=== PATIENT | female | born 1945 | race Caucasian/White ===

== ENCOUNTER → 2016-07-29 | Outpatient (CLI) | payer OTHER ==
[~2016-07-29] MED LIST: CARB25TA12 PO; CELE100C PO; CHOL1CAP57 PO; LEVO200T6 PO; LEVO25TA5 PO; LSX40 PO; METF500T PO; MISCTAB78; OMEGCAP2 PO; TRAM-10 PO; [UNRECOGNIZED DRUG - CODE] TOP
[2016-07-29 13:17] LABS: THYROID STIMULATING HORMONE 3.96 uIu/ml (0.300-4.500)
== END ==
LOC: C.LABCC 11:45
PROVIDERS: ATTEND Internal Medicine
DX: E03.9 Hypothyroidism, unspecified (principal)

== ENCOUNTER → 2016-10-15 | Outpatient (CLI) | payer OTHER ==
[2016-10-15 09:19] LABS: ESTIMATED AVERAGE GLUCOSE 180 mg/dl; HA1C FLAG Normal (Normal)
== END ==
LOC: C.LABCC 08:16
PROVIDERS: ATTEND Internal Medicine
DX: E11.9 Type 2 diabetes mellitus without complications (principal)

== ENCOUNTER → 2016-10-31 | Outpatient (CLI) | payer OTHER ==
[2016-10-31 17:22] LABS: URINE APPEARANCE CLOUDY (CLEAR); URINE BILIRUBIN NEG (NEG); URINE COLOR DK YELLOW; URINE EPITHELIAL CELL AUTO 0-5 /lpf (0-5); URINE NITRITE NEG (NEG); URINE PH >= 9.0 (4.5-7.5); UROBILINOGEN NEG (NEG)
[2016-10-31 17:59] LABS: MANUAL MICROSCOPIC REQUIRED? NO; REVIEW REQ? NO
[2016-10-31 18:00] LABS: SULFASALICYLIC ACID POS (NEG)
== END ==
LOC: C.LABCC 09:30
PROVIDERS: ATTEND Internal Medicine
DX: R30.0 Dysuria (principal); R82.90 Unspecified abnormal findings in urine

== ENCOUNTER → 2016-12-07 | Outpatient (CLI) | payer OTHER ==
[2016-12-07 10:01] LABS: HEMATOCRIT 38.5 % (37-47); MEAN CELL VOLUME 97.7 fL (80-100); MEAN CORPUSCULAR HEMOGLOBIN 31.5 pg (25-34); MEAN CORPUSCULAR HGB CONC 32.2 g/dl (32-36); MEAN PLATELET VOLUME 9.3 fL (7.4-10.4); PLATELET COUNT 495 K/uL (130-400); RED BLOOD COUNT 3.94 M/uL (4.2-5.4); WHITE BLOOD COUNT 16.74 K/uL (4.8-10.8)
[2016-12-07 10:19] LABS: ALT/SGPT 24 U/L (12-78); AST/SGOT 13 U/L (15-37); BLOOD UREA NITROGEN 16 mg/dl (7-18); BUN/CREATININE RATIO 18.9 (10-20); CALCIUM 8.8 mg/dl (8.5-10.1); CARBON DIOXIDE 27 mmol/L (21-32); CHLORIDE 101 mmol/L (98-107); CREATININE 0.83 mg/dl (0.60-1.20); GLUCOSE 196 mg/dl (70-99); MAGNESIUM 2.1 mg/dl (1.8-2.4); POTASSIUM 4.4 mmol/L (3.5-5.1); SODIUM 135 mmol/L (136-145)
[2016-12-07 10:30] LABS: ALB/GLOB RATIO 0.6 (0.9-2); ALKALINE PHOSPHATASE 78 U/L (45-117)
[2016-12-07 11:10] LABS: BASO % 0.4 %; BASO ABS # 0.06 K/uL (0-0.2); COMPLETE YES; EOS % 1.7 %; IG% 7.2 %; LYMPH % 15.2 %; LYMPH ABS # 2.54 K/uL (1.2-3.4); NEUT % 68.5 %
== END | disposition home or self-care (01) ==
LOC: C.LABCC 09:28
PROVIDERS: ATTEND Internal Medicine
DX: E11.9 Type 2 diabetes mellitus without complications (principal); F03.90 Unspecified dementia, unspecified severity, without behavioral disturbance, psychotic disturbance, mood disturbance, and anxiety; R60.9 Edema, unspecified; M19.90 Unspecified osteoarthritis, unspecified site; Z51.81 Encounter for therapeutic drug level monitoring; Z79.899 Other long term (current) drug therapy

== ENCOUNTER → 2017-02-08 | Outpatient (CLI) | payer OTHER ==
[2017-02-08 09:55] LABS: ESTIMATED AVERAGE GLUCOSE 180 mg/dl; HA1C FLAG Normal (Normal)
== END ==
LOC: C.LABCC 08:14
PROVIDERS: ATTEND Internal Medicine
DX: E11.9 Type 2 diabetes mellitus without complications (principal)

== ENCOUNTER → 2017-02-15 | Outpatient (CLI) | payer OTHER ==
[2017-02-15 08:52] LABS: ESTIMATED AVERAGE GLUCOSE 186 mg/dl; HA1C FLAG Normal (Normal)
== END ==
LOC: C.LABCC 08:05
PROVIDERS: ATTEND Internal Medicine
DX: E11.9 Type 2 diabetes mellitus without complications (principal)

== ENCOUNTER → 2017-06-11 | Outpatient (CLI) | payer OTHER ==
[2017-06-11 10:00] LABS: ESTIMATED AVERAGE GLUCOSE 192 mg/dl; HA1C FLAG Normal (Normal)
== END ==
LOC: C.LABCC 09:02
PROVIDERS: ATTEND Internal Medicine
DX: E11.9 Type 2 diabetes mellitus without complications (principal)

== ENCOUNTER → 2017-08-09 | Outpatient (CLI) | payer OTHER ==
[2017-08-09 11:46] LABS: BASO % 0.2 %; BASO ABS # 0.02 K/uL (0-0.2); EOS ABS # 0.19 K/uL (0-0.5); HEMATOCRIT 41.8 % (37-47); HEMOGLOBIN 13.8 g/dL (12.0-16.0); IG# 0.07 K/uL (0.00-0.02); LYMPH ABS # 1.98 K/uL (1.2-3.4); MEAN CELL VOLUME 97.4 fL (80-100); MEAN CORPUSCULAR HEMOGLOBIN 32.2 pg (25-34); MEAN PLATELET VOLUME 11.2 fL (7.4-10.4); MONO % 8.3 %; MONO ABS # 0.78 K/uL (0.11-0.59); NEUT % 67.8 %; PLATELET COUNT 315 K/uL (130-400); RED CELL DISTRIBUTION WIDTH CV 13.3 % (11.5-14.5); WHITE BLOOD COUNT 9.44 K/uL (4.8-10.8)
[2017-08-09 11:54] LABS: BLOOD UREA NITROGEN 20 mg/dl (7-18); CALCIUM 9.1 mg/dl (8.5-10.1); CARBON DIOXIDE 24 mmol/L (21-32); CREATININE 0.83 mg/dl (0.60-1.20); GLUCOSE 175 mg/dl (70-99); POTASSIUM 4.3 mmol/L (3.5-5.1); SODIUM 137 mmol/L (136-145)
== END ==
LOC: C.LABCC 09:56
PROVIDERS: ATTEND Internal Medicine
DX: E55.9 Vitamin D deficiency, unspecified (principal); E11.9 Type 2 diabetes mellitus without complications; E05.90 Thyrotoxicosis, unspecified without thyrotoxic crisis or storm; K21.9 Gastro-esophageal reflux disease without esophagitis

== ENCOUNTER → 2017-11-01 | Outpatient (CLI) | payer OTHER ==
[2017-11-01 10:18] LABS: BLOOD UREA NITROGEN 18 mg/dl (7-18); CALCIUM 9.2 mg/dl (8.5-10.1); CARBON DIOXIDE 24 mmol/L (21-32); GLUCOSE 247 mg/dl (70-99); POTASSIUM 4.3 mmol/L (3.5-5.1); SODIUM 134 mmol/L (136-145)
== END ==
LOC: C.LABCC 09:27
PROVIDERS: ATTEND Internal Medicine
DX: R60.9 Edema, unspecified (principal)

== ENCOUNTER → 2017-11-16 | Outpatient (CLI) | payer OTHER ==
[2017-11-16 08:54] LABS: BLOOD UREA NITROGEN 19 mg/dl (7-18); CARBON DIOXIDE 26 mmol/L (21-32); CREATININE 0.89 mg/dl (0.60-1.20); GLUCOSE 181 mg/dl (70-99); POTASSIUM 4.4 mmol/L (3.5-5.1); SODIUM 137 mmol/L (136-145)
[2017-11-16 09:07] LABS: HEMOGLOBIN A1C 8.6 % (4.5-5.6)
== END | disposition home or self-care (01) ==
LOC: C.LABCC 07:50
PROVIDERS: ATTEND Internal Medicine
DX: E11.9 Type 2 diabetes mellitus without complications (principal); E55.9 Vitamin D deficiency, unspecified

== ENCOUNTER → 2018-03-14 | Outpatient (CLI) | payer OTHER ==
[2018-03-14 09:01] LABS: HEMOGLOBIN A1C 8.4 % (4.5-5.6)
== END ==
LOC: C.LABCC 08:18
PROVIDERS: ATTEND Internal Medicine
DX: E03.9 Hypothyroidism, unspecified (principal); E55.9 Vitamin D deficiency, unspecified; E11.9 Type 2 diabetes mellitus without complications

== ENCOUNTER 2020-11-10 18:42 | Inpatient (IN) ==
[2020-11-10] MEDS ORDERED: SODIUM CHLORIDE 0.9% 1000ML 1,000 ML IV SCH (19:30)
[2020-11-10] MEDS ORDERED: FAMOTIDINE 20MG IV PUSH 20 MG/5 ML SYR IV STA (19:32)
[2020-11-10 19:48] LABS: Basophils # (auto) 0.01 K/uL (0-0.2); Basophils % (auto) 0.1 %; Eosinophils # (auto) 0.17 K/uL (0-0.5); Eosinophils % (auto) 0.9 %; Hematocrit (blood only) 34.2 % (37-47); Immature Granulocytes # (auto) 0.11 K/uL (0.00-0.02); Immature Granulocytes % (auto) 0.6 %; Lymphocytes # (auto) 3.16 K/uL (1.2-3.4); Lymphocytes % (auto) 15.9 %; Mean Corpuscular Hemoglobin 30.8 pg (25-34); Mean Corpuscular Hgb Conc 32.2 g/dL (32-36); Mean Corpuscular Volume 95.8 fL (80-100); Mean Platelet Volume 8.9 fL (7.4-10.4); Monocytes # (auto) 1.08 K/uL (0.11-0.59); Monocytes % (auto) 5.4 %; Neutrophils # (auto) 15.33 K/uL (1.4-6.5); Neutrophils % (auto) 77.1 %; Platelet Count 555 K/uL (130-400); RDW Standard Deviation 49.2 fL (36.4-46.3); Red Blood Count 3.57 M/uL (4.2-5.4); White Blood Count 19.86 K/uL (4.8-10.8)
--- NOTE | 2020-11-10 19:50 | XRay Report ---
XR chest 1V portable CLINICAL HISTORY: SEPSIS COMPARISON STUDY: 12/30/2013 FINDINGS: The heart is enlarged. There is slight interstitial thickening. There is no lobar consolida tion. There are basilar opacities likely atelectatic[. There are no large pleural effusions IMPRESSION: 1. Cardiomegaly and mild nonspecific interstitial thickening. This could be related to atelectasis, m ild pulmonary vascular congestion, or an infectious/inflammatory process. Clinical and radiographic f ollow-up recommended ACT 112: Negative or not required by law. Electronically signed by: Roberto Díaz M.D. 11/10/2020 7:48 PM
[2020-11-10 19:54] LABS: iSTAT Creatinine 0.7 mg/dl (0.6-1.3); iSTAT Hemoglobin 10.9 g/dl (12.0-16.0); iSTAT Ionized Calcium 1.18 mmol/l (1.12-1.32); iSTAT Potassium 4.6 mmol/L (3.3-5.0)
[2020-11-10 19:58] LABS: Partial Thromboplastin Ratio 0.9; Partial Thromboplastin Time 24.7 Seconds (21.0-31.0); Prothrombin Time 10.6 Seconds (9.0-12.0)
[2020-11-10 20:04] LABS: Albumin Level 1.9 gm/dl (3.4-5.0); BUN Creatinine Ratio 67.1 (10-20); Calcium 8.4 mg/dl (8.5-10.1); Creatinine Clr Calc Pharmacy 87.1 ml/min; Est GFR (African American) 103.6; Est GFR (Non-African American) 89.4; Magnesium 2.9 mg/dl (1.8-2.4); Potassium 4.7 mmol/L (3.5-5.1)
[2020-11-10] MEDS: SODIUM CHLORIDE 0.9% 1000ML 1,000 ML IV SCH (20:09)
[2020-11-10 20:13] LABS: Albumin Globulin Ratio 0.4 (0.9-2); Bilirubin,Total 0.3 mg/dl (0.2-1); Globulin 4.7 gm/dl (2.5-4.0); Total Protein 6.6 gm/dl (6.4-8.2); Troponin I 0.051 ng/ml (0-0.045)
[2020-11-10] MEDS ORDERED: VANCOMYCIN HCL 1,500 MG in SODIUM CHLORIDE 0.9% 500 ML IV ONE (20:26)
[2020-11-10] MEDS ORDERED: ACETAMINOPHEN 1,000 MG/100 ML VIAL IV STA (20:26)
[2020-11-10] MEDS ORDERED: CEFEPIME 2,000 MG/20 ML VIAL IV STA (20:26)
[2020-11-10] MEDS ORDERED: VANCOMYCIN CONSULT ACTIVE PRN (20:26)
[2020-11-10 21:31] LABS: Appearance Urine Turbid (Clear); Bacteria Urine Automated 4+ (Negative); Bilirubin Urine Negative (Negative); Blood Urine 3+ (Negative); Cast Urine Automated 0 /lpf (0-5); Color Urine Dark Yellow; Epithelial Cell Urine Auto >30 /lpf (0-5); Glucose Urine UA Negative (Negative); Ketones Urine Trace (Negative); Leukocyte Esterase Urine 2+ (Negative); Nitrite Urine Positive (Negative); Specific Gravity Urine 1.026 (1.000-1.030); Urobilinogen Urine Negative (Negative); WBC Urine Automated >30 /hpf (0-5)
[2020-11-10 21:36] LABS: Protein Urine 2+ (Negative)
[2020-11-10 21:47] LABS: Calcium Oxalate Crystals Urine Present (None Prsent)
--- NOTE | 2020-11-10 22:21 | Emergency Department Note ---
Impression & Plan Coffee ground emesis, Elevated troponin, Abnormal ECG, Acute UTI (urinary tract infection), Decubitus ulcer of sacral area, Leukocytosis ED Provider Note INFORMANT: Patient ED PROVIDER(S): Martin Washington MD CHIEF COMPLAINT: Abdominal pain PLAN: Disposition: Admitted Condition: Guarded Outpatient prescription management: none Referral: None MEDICAL DECISION MAKING: Patient presented to the emergency department because of reported abdominal pain and coffee-ground emesis. She had no additional vomiting or coffee-ground emesis in the ER. She was noted to be borderline febrile. She was somewhat confused and very sleepy. She was arousable and did answer basic questions. She denied any headache, chest pain or breathing difficulty. She had a tender abdomen on examination but she did not have peritoneal findings. The patient underwent a work-up. She had blood work obtained as well as culture. She had a urine sample taken. Her blood work does show significant leukocytosis. She is dehydrated. Her troponin is mildly elevated. Her ECG is abnormal. Patient lactate was within normal limits. Urinalysis was very concerning for infection. Chest x-ray raise concerns for possible pneumonia. The patient was hydrated and given IV cefepime and vancomycin. She does have a mild anemia on CBC. She was given a dose of IV Pepcid. With screening performed. The patient will need further management in the hospital. Consultation was made with Dr. Willi Armenta of the [facility] service. Patient was evaluated in the ER for further management. Triage Nursing notes reviewed and agree them. Vital Signs: reviewed and remarkable for fever Differential diagnosis: Diverticulosis, AVM, coagulopathy, colitis, inflammatory bowel disease, malignancy, Alba-Lucero tear, esophagitis, peptic ulcer disease, variceal bleed, gastritis, sepsis, cardiac sources, as well as other pathologies. Diagnostics interpreted by me: ECG: Twelve-lead ECG reveals a normal sinus rhythm at 81 bpm. There is an RSR prime pattern present. There is T wave inversions anteriorly. No ST elevation. Normal axis. No PVCs or PACs. Cardiac Monitoring: Cardiac monitoring ordered by me: The patient was placed on continuous cardiac monitoring and observed. It revealed a normal sinus rhythm at 79 beats per minute without ectopy or evidence of dysrhythmia. Imaging studies: Chest x-ray shows increased markings concerning for possible infiltrate versus atelectasis. CT scan of the abdomen pelvis reveals a large deep sacral ulcer. There is distended stool in the rectum. No obstruction or free air noted. Fat- containing umbilical hernia. I refer you to the EMR for further details. HPI: The patient is a 75 year old female who presents to the Emergency Room with complaints of abdominal pain. The patient reportedly had a episode of nausea and vomiting with coffee-ground emesis at her nursing facility. Patient is reportedly quite debilitated. She answers some questions but has difficulty with others. History is somewhat limited secondary to patient's mental status and acuity. This started today. The patient also notes the following associated symptoms, generalized abdominal pain. The patient has been given no medication for relieving factors. Unable to quantify pain. The patient denies any headache, chest pain, difficulty breathing. ROS: See above HPI for pertinent positives & negatives. Limited secondary to mental status and acuity. PAST MEDICAL HISTORY:See Below , diabetes, sacral decubiti PAST SURGICAL HISTORY:See Below, FAMILY HISTORY:See Below SOCIAL HISTORY:See Below, resides in a group home HOME MEDICATIONS:See Below ALLERGIES:See Below VITALS:See Below PHYSICAL EXAMINATION: GENERAL: Sleepy but arousable. Vou-[id number], in no distress HENT: Normocephalic, atraumatic. Oropharynx unremarkable. EYES: Normal conjunctiva. Sclera non-icteric. NECK: Inspection normal. Non-tender. Supple. No nuchal rigidity. FROM. No masses. RESPIRATORY: Clear to auscultation. No wheezes. No rales. Normal respiratory effort. CARDIAC: Normal rate. Normal rhythm. No murmurs. No rubs. Extremities warm and well perfused. Pulses equal. No JVD. GI: Soft, non-distended. Mild diffuse tenderness to palpation. No rebound or guarding. No masses. RECTAL: Large sacral decubiti noted. Packing in place. No surrounding cellulitis. : Prasad catheter in place. MUSCULOSKELETAL: Atraumatic. Chest examination reveals no tenderness. The back is symmetrical on inspection without obvious abnormality. There is no CVA tenderness to palpation. No joint edema. LOWER EXTREMITIES: Calves are equal size bilaterally and non-tender. 1+ edema. No discoloration. NEURO: Altered sensorium. Following basic commands. Falls asleep easily. SKIN: No rash or jaundice noted. Martin Washington MD Past Med/Surg History Medical History Bilateral primary osteoarthritis of knee Dementia Diabetes Parkinson's disease Family History Father Myocardial infarction Mother Colorectal cancer Heart disease Social History Smoking Status: Never smoker Allergies Allergies Allergy/AdvReac Type Severity Reaction Status Date / Time SILVER DRESSINGS AdvReac Mild Burning Uncoded 11/10/20 21:08 sensation to wounds Home Meds Home Medications Medication Instructions Recorded Confirmed bisacodyl 10 mg rectal suppository 10 mg SC DAILY PRN 05/29/19 11/10/20 celecoxib 200 mg capsule 200 mg PO DAILY #30 cap 05/29/19 11/10/20 cyanocobalamin (vitamin B-12) 100 mcg IM .COMPLEX 05/29/19 11/10/20 1,000 mcg/mL injection solution fluticasone propionate 50 1 spray INTRANASAL HS 05/29/19 11/10/20 mcg/actuation nasal spray,suspension furosemide 20 mg tablet 20 mg PO DAILY tab 05/29/19 11/10/20 levothyroxine 200 mcg tablet 200 mcg PO QPM tab 05/29/19 11/10/20 levothyroxine 75 mcg tablet 75 mcg PO QPM tab 05/29/19 11/10/20 omeprazole 20 mg capsule,delayed 20 mg PO QPM cap 05/29/19 11/10/20 release sennosides 8.6 mg tablet 8.6 mg PO QAM tab 05/29/19 11/10/20 gabapentin 100 mg capsule 100 mg PO TID 02/13/20 11/10/20 insulin detemir U-100 100 unit/mL 25 units SQ HS 02/13/20 11/10/20 (3 mL) subcutaneous pen ascorbic acid (vitamin C) 500 mg 500 mg PO BID 08/08/20 11/10/20 tablet glimepiride 2 mg tablet 2 mg PO Q12 08/08/20 11/10/20 acetaminophen 650 mg PO Q12 PRN MDD 3g 11/10/20 11/10/20 atropine sulfate (PF) See Rx Instructions .ROUTE .COMPLEX 11/10/20 11/10/20 benztropine 0.5 mg PO BID 11/10/20 11/10/20 docusate sodium [Colace] 100 mg PO BID 11/10/20 11/10/20 fentanyl 50 mcg TRANSDERMAL [id number] 11/10/20 11/10/20 ketoconazole 1 ea TOPICAL 2XWK 11/10/20 11/10/20 magnesium hydroxide [Milk of 30 ml PO DAILY PRN 11/10/20 11/10/20 Magnesia] menthol-zinc oxide [Calmoseptine] 1 applic TOPICAL DAILY 11/10/20 11/10/20 metformin 1,000 mg PO DAILY 11/10/20 11/10/20 methyl salicylate-menthol [Bengay 1 applic TOPICAL QS PRN 11/10/20 11/10/20 Greaseless] morphine concentrate 10 mg PO . EVERY 1 HOUR PRN 11/10/20 11/10/20 multivitamin,tx-minerals 1 tab PO DAILY 11/10/20 11/10/20 [Therems-M (old)] ondansetron HCl [Zofran] 4 mg PO Q6H PRN 11/10/20 11/10/20 protein supplement 1 ea PO UD 11/10/20 11/10/20 sodium chloride [Saline Nasal] 2 spray INTRANASAL Q6 PRN 11/10/20 11/10/20 sodium hypochlorite [Dakin's 1 applic TOPICAL DAILY 11/10/20 11/10/20 Solution] sodium phosphates [Fleet Enema] 118 ml SC DAILY PRN 11/10/20 11/10/20 white petrolatum [Hydrophor] 1 applic TOPICAL QPM 11/10/20 11/10/20 Previous Rx's Medication Instructions Recorded carbidopa 25 mg-levodopa 100 mg 2 tab PO QID #720 tab 05/29/19 tablet Results & Data (ED) Vital Signs Vital Signs - 24 hr 11/10/20 18:15 11/10/20 18:59 11/10/20 19:02 Temperature Temperature Source Pulse Rate 84 84 Pulse Rate [Right Radial] Pulse Rate from SpO2 Sensor 84 84 Pulse Rhythm Pulse Rhythm [Right Radial] Pulse Strength [Right Radial] Respiratory Rate 15 14 Respiratory Effort / Characteristics Respiratory Depth Blood Pressure 168/74 H 168/77 H Blood Pressure [Right Arm] Blood Pressure Mean 105 107 Blood Pressure Mean [Right Arm] Blood Pressure Position [Right Arm] Pulse Oximetry 96 97 Oxygen Delivery Method Oxygen Flow Rate Sepsis Recent Fever Within 48 Hours No Sepsis New/Unexplained Change in Mental Status Yes Sepsis Action Taken by Nursing No Action Required 11/10/20 19:10 11/10/20 19:17 11/10/20 19:20 Temperature 37.9 C H Temperature Source Oral Pulse Rate 82 80 82 Pulse Rate [Right Radial] 84 Pulse Rate from SpO2 Sensor 82 Pulse Rhythm Regular Pulse Rhythm [Right Radial] Pulse Strength [Right Radial] Respiratory Rate 16 20 18 Respiratory Effort / Characteristics Spontaneous Other Respiratory Depth Blood Pressure Blood Pressure [Right Arm] Blood Pressure Mean Blood Pressure Mean [Right Arm] Blood Pressure Position [Right Arm] Pulse Oximetry 97 94 Oxygen Delivery Method Nasal Cannula Oxygen Flow Rate 2 Sepsis Recent Fever Within 48 Hours Sepsis New/Unexplained Change in Mental Status Sepsis Action Taken by Nursing 11/10/20 19:30 11/10/20 19:32 11/10/20 19:40 Temperature 37.9 C H Temperature Source Oral Pulse Rate 83 83 Pulse Rate [Right Radial] Pulse Rate from SpO2 Sensor Pulse Rhythm Pulse Rhythm [Right Radial] Pulse Strength [Right Radial] Respiratory Rate 14 23 Respiratory Effort / Characteristics Respiratory Depth Blood Pressure Blood Pressure [Right Arm] Blood Pressure Mean Blood Pressure Mean [Right Arm] Blood Pressure Position [Right Arm] Pulse Oximetry Oxygen Delivery Method Oxygen Flow Rate Sepsis Recent Fever Within 48 Hours Sepsis New/Unexplained Change in Mental Status Sepsis Action Taken by Nursing 11/10/20 19:47 11/10/20 19:50 11/10/20 20:00 Temperature Temperature Source Pulse Rate 79 78 Pulse Rate [Right Radial] Pulse Rate from SpO2 Sensor 79 78 Pulse Rhythm Pulse Rhythm [Right Radial] Pulse Strength [Right Radial] Respiratory Rate 20 20 20 Respiratory Effort / Characteristics Other Respiratory Depth Blood Pressure Blood Pressure [Right Arm] Blood Pressure Mean Blood Pressure Mean [Right Arm] Blood Pressure Position [Right Arm] Pulse Oximetry 96 93 95 Oxygen Delivery Method Nasal Cannula Oxygen Flow Rate 3 Sepsis Recent Fever Within 48 Hours Sepsis New/Unexplained Change in Mental Status Sepsis Action Taken by Nursing 11/10/20 20:06 11/10/20 20:07 11/10/20 20:10 Temperature Temperature Source Pulse Rate 79 78 78 Pulse Rate [Right Radial] Pulse Rate from SpO2 Sensor 79 78 78 Pulse Rhythm Pulse Rhythm [Right Radial] Pulse Strength [Right Radial] Respiratory Rate 16 22 16 Respiratory Effort / Characteristics Respiratory Depth Blood Pressure 159/90 H 141/92 H Blood Pressure [Right Arm] Blood Pressure Mean 113 108 Blood Pressure Mean [Right Arm] Blood Pressure Position [Right Arm] Pulse Oximetry 96 94 95 Oxygen Delivery Method Oxygen Flow Rate Sepsis Recent Fever Within 48 Hours Sepsis New/Unexplained Change in Mental Status Sepsis Action Taken by Nursing 11/10/20 20:11 11/10/20 20:15 11/10/20 20:20 Temperature Temperature Source Pulse Rate 78 79 79 Pulse Rate [Right Radial] Pulse Rate from SpO2 Sensor 78 79 79 Pulse Rhythm Pulse Rhythm [Right Radial] Pulse Strength [Right Radial] Respiratory Rate 24 16 16 Respiratory Effort / Characteristics Respiratory Depth Blood Pressure 161/81 H 152/81 H Blood Pressure [Right Arm] Blood Pressure Mean 107 104 Blood Pressure Mean [Right Arm] Blood Pressure Position [Right Arm] Pulse Oximetry 95 96 94 Oxygen Delivery Method Oxygen Flow Rate Sepsis Recent Fever Within 48 Hours Sepsis New/Unexplained Change in Mental Status Sepsis Action Taken by Nursing 11/10/20 20:21 11/10/20 20:25 11/10/20 20:30 Temperature Temperature Source Pulse Rate 79 78 78 Pulse Rate [Right Radial] Pulse Rate from SpO2 Sensor 77 79 78 Pulse Rhythm Pulse Rhythm [Right Radial] Pulse Strength [Right Radial] Respiratory Rate 22 16 19 Respiratory Effort / Characteristics Respiratory Depth Blood Pressure 154/81 H 142/72 H Blood Pressure [Right Arm] Blood Pressure Mean 105 95 Blood Pressure Mean [Right Arm] Blood Pressure Position [Right Arm] Pulse Oximetry 92 94 93 Oxygen Delivery Method Oxygen Flow Rate Sepsis Recent Fever Within 48 Hours Sepsis New/Unexplained Change in Mental Status Sepsis Action Taken by Nursing 11/10/20 20:31 11/10/20 20:35 11/10/20 20:40 Temperature Temperature Source Pulse Rate 78 79 81 Pulse Rate [Right Radial] Pulse Rate from SpO2 Sensor 78 79 81 Pulse Rhythm Pulse Rhythm [Right Radial] Pulse Strength [Right Radial] Respiratory Rate 18 16 26 H Respiratory Effort / Characteristics Respiratory Depth Blood Pressure 144/80 H 150/48 H Blood Pressure [Right Arm] Blood Pressure Mean 101 82 Blood Pressure Mean [Right Arm] Blood Pressure Position [Right Arm] Pulse Oximetry 93 94 97 Oxygen Delivery Method Oxygen Flow Rate Sepsis Recent Fever Within 48 Hours Sepsis New/Unexplained Change in Mental Status Sepsis Action Taken by Nursing 11/10/20 20:45 11/10/20 20:50 11/10/20 20:51 Temperature Temperature Source Pulse Rate 80 80 79 Pulse Rate [Right Radial] Pulse Rate from SpO2 Sensor 80 80 79 Pulse Rhythm Pulse Rhythm [Right Radial] Pulse Strength [Right Radial] Respiratory Rate 20 23 15 Respiratory Effort / Characteristics Respiratory Depth Blood Pressure 144/79 H 147/76 H Blood Pressure [Right Arm] Blood Pressure Mean 100 99 Blood Pressure Mean [Right Arm] Blood Pressure Position [Right Arm] Pulse Oximetry 94 95 95 Oxygen Delivery Method Oxygen Flow Rate Sepsis Recent Fever Within 48 Hours Sepsis New/Unexplained Change in Mental Status Sepsis Action Taken by Nursing 11/10/20 20:55 11/10/20 21:00 11/10/20 21:01 Temperature Temperature Source Pulse Rate 79 79 79 Pulse Rate [Right Radial] Pulse Rate from SpO2 Sensor 80 79 79 Pulse Rhythm Pulse Rhythm [Right Radial] Pulse Strength [Right Radial] Respiratory Rate 16 20 19 Respiratory Effort / Characteristics Respiratory Depth Blood Pressure 138/77 131/67 Blood Pressure [Right Arm] Blood Pressure Mean 97 88 Blood Pressure Mean [Right Arm] Blood Pressure Position [Right Arm] Pulse Oximetry 92 94 93 Oxygen Delivery Method Oxygen Flow Rate Sepsis Recent Fever Within 48 Hours Sepsis New/Unexplained Change in Mental Status Sepsis Action Taken by Nursing 11/10/20 21:05 11/10/20 21:06 11/10/20 21:23 Temperature Temperature Source Pulse Rate 79 77 79 Pulse Rate [Right Radial] Pulse Rate from SpO2 Sensor 79 77 80 Pulse Rhythm Pulse Rhythm [Right Radial] Pulse Strength [Right Radial] Respiratory Rate 18 30 H 16 Respiratory Effort / Characteristics Respiratory Depth Blood Pressure 148/69 H Blood Pressure [Right Arm] Blood Pressure Mean 95 Blood Pressure Mean [Right Arm] Blood Pressure Position [Right Arm] Pulse Oximetry 94 89 L 94 Oxygen Delivery Method Oxygen Flow Rate Sepsis Recent Fever Within 48 Hours Sepsis New/Unexplained Change in Mental Status Sepsis Action Taken by Nursing 11/10/20 21:24 11/10/20 21:25 11/10/20 21:30 Temperature Temperature Source Pulse Rate 79 78 77 Pulse Rate [Right Radial] Pulse Rate from SpO2 Sensor 79 78 78 Pulse Rhythm Pulse Rhythm [Right Radial] Pulse Strength [Right Radial] Respiratory Rate 27 H 23 21 Respiratory Effort / Characteristics Respiratory Depth Blood Pressure 140/95 168/85 H 139/65 Blood Pressure [Right Arm] Blood Pressure Mean 110 112 89 Blood Pressure Mean [Right Arm] Blood Pressure Position [Right Arm] Pulse Oximetry 96 95 96 Oxygen Delivery Method Oxygen Flow Rate Sepsis Recent Fever Within 48 Hours Sepsis New/Unexplained Change in Mental Status Sepsis Action Taken by Nursing 11/10/20 21:31 11/10/20 21:35 11/10/20 21:40 Temperature Temperature Source Pulse Rate 77 77 77 Pulse Rate [Right Radial] Pulse Rate from SpO2 Sensor 77 77 77 Pulse Rhythm Pulse Rhythm [Right Radial] Pulse Strength [Right Radial] Respiratory Rate 21 22 18 Respiratory Effort / Characteristics Respiratory Depth Blood Pressure 137/71 129/79 Blood Pressure [Right Arm] Blood Pressure Mean 93 95 Blood Pressure Mean [Right Arm] Blood Pressure Position [Right Arm] Pulse Oximetry 97 97 97 Oxygen Delivery Method Oxygen Flow Rate Sepsis Recent Fever Within 48 Hours Sepsis New/Unexplained Change in Mental Status Sepsis Action Taken by Nursing 11/10/20 21:41 11/10/20 21:45 11/10/20 21:50 Temperature Temperature Source Pulse Rate 77 77 76 Pulse Rate [Right Radial] Pulse Rate from SpO2 Sensor 77 77 77 Pulse Rhythm Pulse Rhythm [Right Radial] Pulse Strength [Right Radial] Respiratory Rate 25 H 17 21 Respiratory Effort / Characteristics Respiratory Depth Blood Pressure 140/76 143/73 H Blood Pressure [Right Arm] Blood Pressure Mean 97 96 Blood Pressure Mean [Right Arm] Blood Pressure Position [Right Arm] Pulse Oximetry 97 98 98 Oxygen Delivery Method Oxygen Flow Rate Sepsis Recent Fever Within 48 Hours Sepsis New/Unexplained Change in Mental Status Sepsis Action Taken by Nursing 11/10/20 21:51 11/10/20 21:55 11/10/20 22:00 Temperature Temperature Source Pulse Rate 78 77 79 Pulse Rate [Right Radial] Pulse Rate from SpO2 Sensor 78 77 80 Pulse Rhythm Pulse Rhythm [Right Radial] Pulse Strength [Right Radial] Respiratory Rate 19 19 28 H Respiratory Effort / Characteristics Respiratory Depth Blood Pressure 137/73 158/92 H Blood Pressure [Right Arm] Blood Pressure Mean 94 114 Blood Pressure Mean [Right Arm] Blood Pressure Position [Right Arm] Pulse Oximetry 99 98 97 Oxygen Delivery Method Oxygen Flow Rate Sepsis Recent Fever Within 48 Hours Sepsis New/Unexplained Change in Mental Status Sepsis Action Taken by Nursing 11/10/20 22:01 11/10/20 22:05 11/10/20 22:10 Temperature Temperature Source Pulse Rate 79 77 77 Pulse Rate [Right Radial] Pulse Rate from SpO2 Sensor 79 78 78 Pulse Rhythm Pulse Rhythm [Right Radial] Pulse Strength [Right Radial] Respiratory Rate 19 21 21 Respiratory Effort / Characteristics Respiratory Depth Blood Pressure 143/75 H 135/70 Blood Pressure [Right Arm] Blood Pressure Mean 97 91 Blood Pressure Mean [Right Arm] Blood Pressure Position [Right Arm] Pulse Oximetry 97 96 96 Oxygen Delivery Method Oxygen Flow Rate Sepsis Recent Fever Within 48 Hours Sepsis New/Unexplained Change in Mental Status Sepsis Action Taken by Nursing 11/10/20 22:11 11/10/20 22:15 11/10/20 22:20 Temperature Temperature Source Pulse Rate 77 76 76 Pulse Rate [Right Radial] Pulse Rate from SpO2 Sensor 77 76 77 Pulse Rhythm Pulse Rhythm [Right Radial] Pulse Strength [Right Radial] Respiratory Rate 19 17 17 Respiratory Effort / Characteristics Respiratory Depth Blood Pressure 133/75 124/67 Blood Pressure [Right Arm] Blood Pressure Mean 94 86 Blood Pressure Mean [Right Arm] Blood Pressure Position [Right Arm] Pulse Oximetry 97 97 97 Oxygen Delivery Method Oxygen Flow Rate Sepsis Recent Fever Within 48 Hours Sepsis New/Unexplained Change in Mental Status Sepsis Action Taken by Nursing 11/10/20 22:21 11/10/20 22:25 11/10/20 22:30 Temperature Temperature Source Pulse Rate 76 77 77 Pulse Rate [Right Radial] Pulse Rate from SpO2 Sensor 76 77 77 Pulse Rhythm Pulse Rhythm [Right Radial] Pulse Strength [Right Radial] Respiratory Rate 22 17 14 Respiratory Effort / Characteristics Respiratory Depth Blood Pressure 116/69 132/75 Blood Pressure [Right Arm] Blood Pressure Mean 84 94 Blood Pressure Mean [Right Arm] Blood Pressure Position [Right Arm] Pulse Oximetry 98 98 98 Oxygen Delivery Method Oxygen Flow Rate Sepsis Recent Fever Within 48 Hours Sepsis New/Unexplained Change in Mental Status Sepsis Action Taken by Nursing 11/10/20 22:35 11/10/20 22:40 11/10/20 22:41 Temperature Temperature Source Pulse Rate 76 75 75 Pulse Rate [Right Radial] Pulse Rate from SpO2 Sensor 77 75 75 Pulse Rhythm Pulse Rhythm [Right Radial] Pulse Strength [Right Radial] Respiratory Rate 19 18 19 Respiratory Effort / Characteristics Respiratory Depth Blood Pressure 140/70 115/69 Blood Pressure [Right Arm] Blood Pressure Mean 93 84 Blood Pressure Mean [Right Arm] Blood Pressure Position [Right Arm] Pulse Oximetry 98 97 99 Oxygen Delivery Method Oxygen Flow Rate Sepsis Recent Fever Within 48 Hours Sepsis New/Unexplained Change in Mental Status Sepsis Action Taken by Nursing 11/10/20 22:44 11/10/20 23:23 11/11/20 00:17 Temperature Temperature Source Pulse Rate 72 Pulse Rate [Right Radial] 74 Pulse Rate from SpO2 Sensor Pulse Rhythm Pulse Rhythm [Right Radial] Regular Pulse Strength [Right Radial] Normal Respiratory Rate 20 18 18 Respiratory Effort / Characteristics Non-Labored Non-Labored Spontaneous Respiratory Depth Normal Blood Pressure 90/52 L Blood Pressure [Right Arm] 105/72 Blood Pressure Mean Blood Pressure Mean [Right Arm] 83 Blood Pressure Position [Right Arm] Lying Pulse Oximetry 95 98 98 Oxygen Delivery Method Nasal Cannula Room Air Room Air Oxygen Flow Rate 3 Sepsis Recent Fever Within 48 Hours Sepsis New/Unexplained Change in Mental Status Sepsis Action Taken by Nursing Laboratory Data Result diagrams: 11/10/20 19:35 11/10/20 19:35 Lab Results 11/10/20 11/10/20 11/10/20 Range/Units 19:33 19:35 19:35 WBC 19.86 H (4.8-10.8) K/uL RBC 3.57 L (4.2-5.4) M/uL Hgb 11.0 L (12.0-16.0) g/dL POC Hgb (12.0-16.0) g/dl Hct 34.2 L (37-47) % POC Hct (37-47) % MCV 95.8 (80-100) fL MCH 30.8 (25-34) pg MCHC 32.2 (32-36) g/dL RDW Std Deviation 49.2 H (36.4-46.3) fL RDW Coeff of Matt 14.0 (11.5-14.5) % Plt Count 555 H (130-400) K/uL MPV 8.9 (7.4-10.4) fL Immature Gran % (Auto) 0.6 % Neut % (Auto) 77.1 % Lymph % (Auto) 15.9 % Lyman % (Auto) 5.4 % Eos % (Auto) 0.9 % Baso % (Auto) 0.1 % Neut # (Auto) 15.33 H (1.4-6.5) K/uL Lymph # (Auto) 3.16 (1.2-3.4) K/uL Lyman # (Auto) 1.08 H (0.11-0.59) K/uL Eos # (Auto) 0.17 (0-0.5) K/uL Baso # (Auto) 0.01 (0-0.2) K/uL Immature Gran # (Auto) 0.11 H (0.00-0.02) K/uL PT 10.6 (9.0-12.0) Seconds INR 1.0 (0.9-1.1) APTT 24.7 (21.0-31.0) Seconds PTT Ratio 0.9 POC Sodium (135-144) mmol/L Sodium (136-145) mmol/L POC Potassium (3.3-5.0) mmol/L Potassium (3.5-5.1) mmol/L POC Chloride (101-112) mmol/L Chloride (98-107) mmol/L Carbon Dioxide (21-32) mmol/L POC Total CO2 (24-31) mmol/L Anion Gap (3-11) POC Anion Gap (16-25) mmol/L POC BUN (7-18) mg/dl BUN (7-18) mg/dl Creatinine (0.6-1.2) mg/dl POC Creatinine (0.6-1.3) mg/dl Est Cr Clr Drug Dosing ml/min Est GFR ( Amer) Est GFR (Non-Af Amer) BUN/Creatinine Ratio (10-20) Glucose (70-99) mg/dl POC Glucose (other) (70-99) mg/dl Lactate (0.4-2.0) mmol/L Calcium (8.5-10.1) mg/dl POC Ioniz Calcium Megan (1.12-1.32) mmol/l Magnesium (1.8-2.4) mg/dl Total Bilirubin (0.2-1) mg/dl AST (15-37) U/L ALT (12-78) U/L Alkaline Phosphatase (45-117) U/L Troponin I (0-0.045) ng/ml Total Protein (6.4-8.2) gm/dl Albumin (3.4-5.0) gm/dl Globulin (2.5-4.0) gm/dl Albumin/Globulin Ratio (0.9-2) Urine Color Urine Appearance (Clear) Urine pH (4.5-7.5) Ur Specific [place] (1.000-1.030) Urine Protein (Negative) Urine Glucose (UA) (Negative) Urine Ketones (Negative) Urine Blood (Negative) Urine Nitrite (Negative) Urine Bilirubin (Negative) Urine Urobilinogen (Negative) Ur Leukocyte Esterase (Negative) Urine WBC (Auto) (0-5) /hpf Urine RBC (Auto) (0-4) /hpf U Hyaline Cast (Auto) (0-5) /lpf U Epithel Cells (Auto) (0-5) /lpf Urine Bacteria (Auto) (Negative) Urine Crystals (None Prsent) Calcium Oxalate Crystal (None Prsent) Urine Yeast COVID-19 Eval Order SARS-CoV-2 (PCR) (Negative) Influenza Type A (PCR) (Neg) Influenza Type B (PCR) (Neg) RSV (RT-PCR) (Neg) Blood Type A Negative Antibody Screen NEGATIVE 11/10/20 11/10/20 11/10/20 Range/Units 19:35 19:35 19:41 WBC (4.8-10.8) K/uL RBC (4.2-5.4) M/uL Hgb (12.0-16.0) g/dL POC Hgb 10.9 L (12.0-16.0) g/dl Hct (37-47) % POC Hct 32 L (37-47) % MCV (80-100) fL MCH (25-34) pg MCHC (32-36) g/dL RDW Std Deviation (36.4-46.3) fL RDW Coeff of Matt (11.5-14.5) % Plt Count (130-400) K/uL MPV (7.4-10.4) fL Immature Gran % (Auto) % Neut % (Auto) % Lymph % (Auto) % Lyman % (Auto) % Eos % (Auto) % Baso % (Auto) % Neut # (Auto) (1.4-6.5) K/uL Lymph # (Auto) (1.2-3.4) K/uL Lyman # (Auto) (0.11-0.59) K/uL Eos # (Auto) (0-0.5) K/uL Baso # (Auto) (0-0.2) K/uL Immature Gran # (Auto) (0.00-0.02) K/uL PT (9.0-12.0) Seconds INR (0.9-1.1) APTT (21.0-31.0) Seconds PTT Ratio POC Sodium 136 (135-144) mmol/L Sodium 139 (136-145) mmol/L POC Potassium 4.6 (3.3-5.0) mmol/L Potassium 4.7 (3.5-5.1) mmol/L POC Chloride 97 L (101-112) mmol/L Chloride 103 (98-107) mmol/L Carbon Dioxide 36 H (21-32) mmol/L POC Total CO2 35 H (24-31) mmol/L Anion Gap 0 L (3-11) POC Anion Gap 10.0 L (16-25) mmol/L POC BUN 34 H (7-18) mg/dl BUN 38 H (7-18) mg/dl Creatinine 0.57 L (0.6-1.2) mg/dl POC Creatinine 0.7 (0.6-1.3) mg/dl Est Cr Clr Drug Dosing 87.1 ml/min Est GFR ( Amer) 103.6 Est GFR (Non-Af Amer) 89.4 BUN/Creatinine Ratio 67.1 H (10-20) Glucose 146 H (70-99) mg/dl POC Glucose (other) 149 H (70-99) mg/dl Lactate 1.6 (0.4-2.0) mmol/L Calcium 8.4 L (8.5-10.1) mg/dl POC Ioniz Calcium Megan 1.18 (1.12-1.32) mmol/l Magnesium 2.9 H (1.8-2.4) mg/dl Total Bilirubin 0.3 (0.2-1) mg/dl AST 16 (15-37) U/L ALT 7 L (12-78) U/L Alkaline Phosphatase 89 (45-117) U/L Troponin I 0.051 H* (0-0.045) ng/ml Total Protein 6.6 (6.4-8.2) gm/dl Albumin 1.9 L (3.4-5.0) gm/dl Globulin 4.7 H (2.5-4.0) gm/dl Albumin/Globulin Ratio 0.4 L (0.9-2) Urine Color Urine Appearance (Clear) Urine pH (4.5-7.5) Ur Specific [place] (1.000-1.030) Urine Protein (Negative) Urine Glucose (UA) (Negative) Urine Ketones (Negative) Urine Blood (Negative) Urine Nitrite (Negative) Urine Bilirubin (Negative) Urine Urobilinogen (Negative) Ur Leukocyte Esterase (Negative) Urine WBC (Auto) (0-5) /hpf Urine RBC (Auto) (0-4) /hpf U Hyaline Cast (Auto) (0-5) /lpf U Epithel Cells (Auto) (0-5) /lpf Urine Bacteria (Auto) (Negative) Urine Crystals (None Prsent) Calcium Oxalate Crystal (None Prsent) Urine Yeast COVID-19 Eval Order SARS-CoV-2 (PCR) (Negative) Influenza Type A (PCR) (Neg) Influenza Type B (PCR) (Neg) RSV (RT-PCR) (Neg) Blood Type Antibody Screen 11/10/20 11/10/20 11/10/20 Range/Units 20:50 22:05 22:05 WBC (4.8-10.8) K/uL RBC (4.2-5.4) M/uL Hgb (12.0-16.0) g/dL POC Hgb (12.0-16.0) g/dl Hct (37-47) % POC Hct (37-47) % MCV (80-100) fL MCH (25-34) pg MCHC (32-36) g/dL RDW Std Deviation (36.4-46.3) fL RDW Coeff of Matt (11.5-14.5) % Plt Count (130-400) K/uL MPV (7.4-10.4) fL Immature Gran % (Auto) % Neut % (Auto) % Lymph % (Auto) % Lyman % (Auto) % Eos % (Auto) % Baso % (Auto) % Neut # (Auto) (1.4-6.5) K/uL Lymph # (Auto) (1.2-3.4) K/uL Lyman # (Auto) (0.11-0.59) K/uL Eos # (Auto) (0-0.5) K/uL Baso # (Auto) (0-0.2) K/uL Immature Gran # (Auto) (0.00-0.02) K/uL PT (9.0-12.0) Seconds INR (0.9-1.1) APTT (21.0-31.0) Seconds PTT Ratio POC Sodium (135-144) mmol/L Sodium (136-145) mmol/L POC Potassium (3.3-5.0) mmol/L Potassium (3.5-5.1) mmol/L POC Chloride (101-112) mmol/L Chloride (98-107) mmol/L Carbon Dioxide (21-32) mmol/L POC Total CO2 (24-31) mmol/L Anion Gap (3-11) POC Anion Gap (16-25) mmol/L POC BUN (7-18) mg/dl BUN (7-18) mg/dl Creatinine (0.6-1.2) mg/dl POC Creatinine (0.6-1.3) mg/dl Est Cr Clr Drug Dosing ml/min Est GFR ( Amer) Est GFR (Non-Af Amer) BUN/Creatinine Ratio (10-20) Glucose (70-99) mg/dl POC Glucose (other) (70-99) mg/dl Lactate (0.4-2.0) mmol/L Calcium (8.5-10.1) mg/dl POC Ioniz Calcium Megan (1.12-1.32) mmol/l Magnesium (1.8-2.4) mg/dl Total Bilirubin (0.2-1) mg/dl AST (15-37) U/L ALT (12-78) U/L Alkaline Phosphatase (45-117) U/L Troponin I (0-0.045) ng/ml Total Protein (6.4-8.2) gm/dl Albumin (3.4-5.0) gm/dl Globulin (2.5-4.0) gm/dl Albumin/Globulin Ratio (0.9-2) Urine Color Dark Yellow Urine Appearance Turbid A (Clear) Urine pH 8.0 H (4.5-7.5) Ur Specific [place] 1.026 (1.000-1.030) Urine Protein 2+ H (Negative) Urine Glucose (UA) Negative (Negative) Urine Ketones Trace H (Negative) Urine Blood 3+ H (Negative) Urine Nitrite Positive A (Negative) Urine Bilirubin Negative (Negative) Urine Urobilinogen Negative (Negative) Ur Leukocyte Esterase 2+ H (Negative) Urine WBC (Auto) >30 H (0-5) /hpf Urine RBC (Auto) 5-10 H (0-4) /hpf U Hyaline Cast (Auto) 0 (0-5) /lpf U Epithel Cells (Auto) >30 H (0-5) /lpf Urine Bacteria (Auto) 4+ H (Negative) Urine Crystals Calcium Oxalate A (None Prsent) Calcium Oxalate Crystal Present A (None Prsent) Urine Yeast Not Reportable COVID-19 Eval Order CovFluRsv at [facility] SARS-CoV-2 (PCR) NEGATIVE (Negative) Influenza Type A (PCR) Negative (Neg) Influenza Type B (PCR) Negative (Neg) RSV (RT-PCR) Negative (Neg) Blood Type Antibody Screen Administered Medications Sodium Chloride (Nss 1000ml) 1,000 mls @ 150 mls/hr IV .[id number] EMERALD Stop: 12/10/20 19:29 Last Admin: 11/10/20 20:09 Dose: 150 mls/hr Documented by: [id number] Discontinued Medications Sodium Chloride (Nss 1000ml) 1,000 mls @ 999 mls/hr IV .Q1H1M EMERALD Stop: 11/10/20 20:30 Last Infusion: 11/10/20 22:59 Dose: 0 mls/hr Documented by: [id number] Admin: 11/10/20 20:08 Dose: 999 mls/hr Documented by: [id number] Famotidine (Pepcid 20mg Iv Push) 20 mg in 5 mls @ 2.5 mls/min IV NOW STA Stop: 11/10/20 19:33 Last Admin: 11/10/20 20:08 Dose: 2.5 mls/min Documented by: [id number] Cefepime HCl (Maxipime) 2,000 mg in 20 mls @ 5 mls/min IV NOW STA; Protocol Stop: 11/10/20 20:29 Last Admin: 11/10/20 21:21 Dose: 5 mls/min Documented by: [id number] Vancomycin HCl 1,500 mg/ (Sodium Chloride) 530 mls @ 200 mls/hr IV NOW ONE Stop: 11/10/20 23:04 Last Infusion: 11/10/20 23:39 Dose: 0 mls/hr Documented by: [id number] Admin: 11/10/20 21:21 Dose: 200 mls/hr Documented by: [id number] Acetaminophen (Ofirmev) 1,000 mg in 100 mls @ 400 mls/hr IV NOW STA Stop: 11/10/20 20:40 Last Infusion: 11/10/20 22:59 Dose: 0 mls/hr Documented by: [id number] Admin: 11/10/20 21:21 Dose: 400 mls/hr Documented by: [id number] Imaging Data Radiologist's Impression: Chest X-Ray 11/10/20 19:17 XR chest 1V portable CLINICAL HISTORY: SEPSIS COMPARISON STUDY: 12/30/2013 FINDINGS: The heart is enlarged. There is slight interstitial thickening. There is no lobar consolidation. There are basilar opacities likely atelectatic[. There are no large pleural effusions IMPRESSION: 1. Cardiomegaly and mild nonspecific interstitial thickening. This could be related to atelectasis, mild pulmonary vascular congestion, or an infectious/inflammatory process. Clinical and radiographic follow-up recommended ACT 112: Negative or not required by law. Electronically signed by: Roberto Díaz M.D. 11/10/2020 7:48 PM Discharge Plan Visit Data Chief Complaint: Abdominal Pain Stated Complaint: AB PAIN ED Provider: Martin [facility] Discharge Problem: Coffee ground emesis, Elevated troponin, Abnormal ECG, Acute UTI (urinary tract infection), Decubitus ulcer of sacral area, Leukocytosis Discharge Instructions Interventions: ED Discharge Assessment Last Done: 11/11/20 00:17 Forms Stand Alone Forms: My [facility] Prescriptions Prescriptions: No Action gabapentin 100 mg capsule 100 mg PO TID RF: 0 Levemir FlexTouch U-100 Insuln 100 unit/mL (3 mL) insulin pen 25 units SQ HS RF: 0 celecoxib 200 mg capsule 200 mg PO DAILY Qty: 30 RF: 0 cyanocobalamin (vitamin B-12) 1,000 mcg/mL solution 100 mcg IM .COMPLEX RF: 0 bisacodyl [Dulcolax (bisacodyl)] 10 mg suppository 10 mg SC DAILY PRN (Reason: Constipation) RF: 0 furosemide 20 mg tablet 20 mg PO DAILY RF: 0 fluticasone propionate 50 mcg/actuation spray,suspension 1 spray intranasal HS RF: 0 levothyroxine 200 mcg tablet 200 mcg PO QPM RF: 0 levothyroxine 75 mcg tablet 75 mcg PO QPM RF: 0 omeprazole 20 mg capsule,delayed release(DR/EC) 20 mg PO QPM RF: 0 sennosides 8.6 mg tablet 8.6 mg PO QAM RF: 0 carbidopa-levodopa 25-100 mg tablet 2 tab PO QID Qty: 720 RF: 3 ascorbic acid (vitamin C) 500 mg tablet 500 mg PO BID RF: 0 glimepiride 2 mg tablet 2 mg PO Q12 RF: 0 protein supplement Liquid 1 ea PO UD RF: 0 Calmoseptine 0.44-20.6 % Ointment 1 applic TOPICAL DAILY RF: 0 Fleet Enema 19-7 gram/118 mL Enema 118 ml SC DAILY PRN (Reason: Constipation) RF: 0 fentanyl 50 mcg/hr patch 72 hour 50 mcg transdermal [id number] RF: 0 sodium chloride [Saline Nasal] 0.65 % Aerosol,[place] 2 spray INTRANASAL Q6 PRN (Reason: Nasal Congestion) RF: 0 Therems-M (old) Tablet 1 tab PO DAILY RF: 0 ondansetron HCl [Zofran] 4 mg Tablet 4 mg PO Q6H PRN (Reason: Nausea) RF: 0 morphine concentrate 100 mg/5 mL (20 mg/mL) solution 10 mg PO . EVERY 1 HOUR PRN (Reason: pain scale 5-10 breakthrough pain) RF: 0 magnesium hydroxide [Milk of Magnesia] 400 mg/5 mL Suspension 30 ml PO DAILY PRN (Reason: Constipation) RF: 0 docusate sodium [Colace] 100 mg Capsule 100 mg PO BID RF: 0 metformin 1,000 mg Tablet Extended Release 24hr 1,000 mg PO DAILY RF: 0 acetaminophen 650 mg Tablet 650 mg PO Q12 MDD 3g PRN (Reason: Pain) RF: 0 benztropine 0.5 mg Tablet 0.5 mg PO BID RF: 0 Bengay Greaseless 15-10 % Cream 1 applic TOPICAL QS PRN (Reason: hand pain) RF: 0 atropine sulfate (PF) 1 % Drops See Rx Instructions .ROUTE .COMPLEX RF: 0 white petrolatum [Hydrophor] 42 % Ointment 1 applic TOPICAL QPM RF: 0 ketoconazole 2 % Shampoo 1 ea TOPICAL 2XWK RF: 0 Dakin's Solution 0.125 % Solution 1 applic TOPICAL DAILY RF: 0 Referrals Referrals: [facility] [Primary Care Provider] -
[2020-11-10 23:01] LABS: Influenza A virus by PCR Negative (Neg); Influenza B virus by PCR Negative (Neg); RSV by PCR Negative (Neg); SARS CoV2 RNA(COVID-19) InHosp NEGATIVE (Negative)
--- NOTE | 2020-11-10 23:47 | History & Physical Report ---
Date of Service November 10, 2020 Assessment & Plan (1) Elevated troponin: The patient will be admitted to telemetry for serial cardiac enzymes, serial EKG's, cardiac rhythm monitoring and a 2-D echocardiogram with Dopplers. Would not pursue aggressively, as patient is DNR/DNI, debilitated, and likely has type II [place], supply demand mismatch Continue Present on Admission?: Yes (2) Acute UTI (urinary tract infection): Follow urine culture and sensitivity Zosyn 3.375 g IV every 8 hours NSS at 150 mils per hour Present on Admission?: Yes (3) Decubitus ulcer of sacral area: Consult wound care Present on Admission?: Yes (4) Diabetes: Hold Levemir, Metformin and glimepiride. Placed on Accu-Cheks before meals and at bedtime with NovoLog coverage per scale Present on Admission?: Yes (5) Dementia: (6) Parkinson's disease: Continue carbidopa levodopa Present on Admission?: Yes (7) Hypothyroidism: Continue levothyroxine Present on Admission?: Yes (8) Coffee ground emesis: Was reported by transferring facility, however no evidence of such in the ED. Pantoprazole 40 mg p.o. every morning Famotidine 20 mg IV every 12 hours H&H every 6 hours x4 Would not pursue aggressively due to her CODE STATUS and quality of life Heme test stools difficult to do due to sacral decubitus Large fecal impaction causing rectal distention, likely resulting in episode of vomiting prior to arrival Fleet enema listed as a as needed 100 med list, unclear if it has been used recently Present on Admission?: Yes History of Present Illness Chief Complaint: The patient was referred from [facility] due to reports of abdominal pain and possible coffee-ground emesis, of which she had no indications in the emergency department. Primary Care Provider: [facility] The patient is a 75-year-old female with a past medical history including large sacral decubitus, diabetes mellitus, dementia, Parkinson's disease, lymphedema, venous insufficiency, hypothyroidism, bilateral lower extremity cellulitis, renal failure, urinary tract infection and generalized weakness. Patient was not able to contribute to her HPI or review of systems due to baseline mental status and lethargy. Allergies Allergy/AdvReac Type Severity Reaction Status Date / Time SILVER DRESSINGS AdvReac Mild Burning Uncoded 11/10/20 21:08 sensation to wounds Home Medications Medication Instructions Recorded Confirmed Type bisacodyl 10 mg rectal suppository 10 mg MO DAILY PRN 05/29/19 11/10/20 History carbidopa 25 mg-levodopa 100 mg 2 tab PO QID #720 tab 05/29/19 11/10/20 Rx tablet celecoxib 200 mg capsule 200 mg PO DAILY #30 cap 05/29/19 11/10/20 History cyanocobalamin (vitamin B-12) 100 mcg IM .COMPLEX 05/29/19 11/10/20 History 1,000 mcg/mL injection solution fluticasone propionate 50 1 spray INTRANASAL HS gm 05/29/19 11/10/20 History mcg/actuation nasal spray,suspension furosemide 20 mg tablet 20 mg PO DAILY tab 05/29/19 11/10/20 History levothyroxine 200 mcg tablet 200 mcg PO QPM tab 05/29/19 11/10/20 History levothyroxine 75 mcg tablet 75 mcg PO QPM tab 05/29/19 11/10/20 History omeprazole 20 mg capsule,delayed 20 mg PO QPM cap 05/29/19 11/10/20 History release sennosides 8.6 mg tablet 8.6 mg PO QAM tab 05/29/19 11/10/20 History gabapentin 100 mg capsule 100 mg PO TID 02/13/20 11/10/20 History insulin detemir U-100 100 unit/mL 25 units SQ HS 02/13/20 11/10/20 History (3 mL) subcutaneous pen ascorbic acid (vitamin C) 500 mg 500 mg PO BID 08/08/20 11/10/20 History tablet glimepiride 2 mg tablet 2 mg PO Q12 08/08/20 11/10/20 History acetaminophen 650 mg PO Q12 PRN MDD 3g 11/10/20 11/10/20 History atropine sulfate (PF) See Rx Instructions .ROUTE .COMPLEX 11/10/20 11/10/20 History benztropine 0.5 mg PO BID 11/10/20 11/10/20 History docusate sodium [Colace] 100 mg PO BID 11/10/20 11/10/20 History fentanyl 50 mcg TRANSDERMAL [id number] 11/10/20 11/10/20 History ketoconazole 1 ea TOPICAL 2XWK 11/10/20 11/10/20 History magnesium hydroxide [Milk of 30 ml PO DAILY PRN 11/10/20 11/10/20 History Magnesia] menthol-zinc oxide [Calmoseptine] 1 applic TOPICAL DAILY 11/10/20 11/10/20 History metformin 1,000 mg PO DAILY 11/10/20 11/10/20 History methyl salicylate-menthol [Bengay 1 applic TOPICAL QS PRN 11/10/20 11/10/20 History Greaseless] morphine concentrate 10 mg PO . EVERY 1 HOUR PRN 11/10/20 11/10/20 History multivitamin,tx-minerals 1 tab PO DAILY 11/10/20 11/10/20 History [Therems-M (old)] ondansetron HCl [Zofran] 4 mg PO Q6H PRN 11/10/20 11/10/20 History protein supplement 1 ea PO UD 11/10/20 11/10/20 History sodium chloride [Saline Nasal] 2 spray INTRANASAL Q6 PRN 11/10/20 11/10/20 History sodium hypochlorite [Dakin's 1 applic TOPICAL DAILY 11/10/20 11/10/20 History Solution] sodium phosphates [Fleet Enema] 118 ml MO DAILY PRN 11/10/20 11/10/20 History white petrolatum [Hydrophor] 1 applic TOPICAL QPM 11/10/20 11/10/20 History Past Med/Surg History Medical History Bilateral primary osteoarthritis of knee Dementia Diabetes Parkinson's disease Family History Father Myocardial infarction Mother Colorectal cancer Heart disease Social History Smoking Status: Never smoker Preferred Language: Bahamian Communication Ability Comment: unable to accurately assess communication ability Current Living Situation: Custodial Current Living Situation Comment: [facility] Review of Systems Review of Systems: Unobtainable due to cognitive status Physical Exam Physical Exam: The patient is lethargic, normocephalic and atraumatic, lying in bed and in no acute distress. HEENT--PERRL, EOMI, mucous membranes and oropharynx dry. Neck--supple. No JVD. No bruits. Thyroid normal, trachea midline, no adenopathy. Heart--normal S1 and S2. No murmurs, rubs or gallops. Lungs--clear bilaterally, no respiratory distress, no accessory muscle use. Abdomen--normal bowel sounds and soft. Nontender. Nondistended, no hernias or masses, no organomegaly. Extremities--no cyanosis or clubbing. No edema. Dermatologic--normal skin turgor, normal color, no abnormal lymph nodes, no rash. Neurologic--cranial nerves II through XII grossly intact. Rheumatologic--normal range of motion. Psychiatric--lethargic Results & Data Results & Data ([facility]) Vital Signs (Past 12 Hours) Vital Signs Temp Pulse Pulse Resp BP BP Pulse Ox 11/10/20 23:23 74 18 105/72 98 11/10/20 22:44 20 95 11/10/20 22:41 75 19 99 11/10/20 22:40 75 18 115/69 97 11/10/20 22:35 76 19 140/70 98 11/10/20 22:30 77 14 132/75 98 11/10/20 22:25 77 17 116/69 98 11/10/20 22:21 76 22 98 11/10/20 22:20 76 17 124/67 97 11/10/20 22:15 76 17 133/75 97 11/10/20 22:11 77 19 97 11/10/20 22:10 77 21 135/70 96 11/10/20 22:05 77 21 143/75 H 96 11/10/20 22:01 79 19 97 11/10/20 22:00 79 28 H 158/92 H 97 11/10/20 21:55 77 19 137/73 98 11/10/20 21:51 78 19 99 11/10/20 21:50 76 21 143/73 H 98 11/10/20 21:45 77 17 140/76 98 11/10/20 21:41 77 25 H 97 11/10/20 21:40 77 18 129/79 97 11/10/20 21:35 77 22 137/71 97 11/10/20 21:31 77 21 97 11/10/20 21:30 77 21 139/65 96 11/10/20 21:25 78 23 168/85 H 95 11/10/20 21:24 79 27 H 140/95 96 04/18/21 21:23 79 16 94 11/10/20 21:06 77 30 H 89 L 11/10/20 21:05 79 18 148/69 H 94 11/10/20 21:01 79 19 93 11/10/20 21:00 79 20 131/67 94 11/10/20 20:55 79 16 138/77 92 11/10/20 20:51 79 15 95 11/10/20 20:50 80 23 147/76 H 95 11/10/20 20:45 80 20 144/79 H 94 11/10/20 20:40 81 26 H 150/48 H 97 11/10/20 20:35 79 16 144/80 H 94 11/10/20 20:31 78 18 93 11/10/20 20:30 78 19 142/72 H 93 11/10/20 20:25 78 16 154/81 H 94 11/10/20 20:21 79 22 92 11/10/20 20:20 79 16 152/81 H 94 11/10/20 20:15 79 16 161/81 H 96 11/10/20 20:11 78 24 95 11/10/20 20:10 78 16 141/92 H 95 11/10/20 20:07 78 22 94 11/10/20 20:06 79 16 159/90 H 96 11/10/20 20:00 78 20 95 11/10/20 19:50 79 20 93 11/10/20 19:47 20 96 11/10/20 19:40 83 23 11/10/20 19:32 100.2 F H 11/10/20 19:30 83 14 11/10/20 19:20 82 18 11/10/20 19:17 100.2 F H 80 84 20 94 11/10/20 19:10 82 16 97 11/10/20 19:02 84 14 97 11/10/20 18:59 84 15 168/77 H 96 11/10/20 18:15 168/74 H Laboratory Results Laboratory Results WBC 19.86 K/uL (4.8-10.8) H 11/10/20 19:35 RBC 3.57 M/uL (4.2-5.4) L 11/10/20 19:35 Hgb 11.0 g/dL (12.0-16.0) L 11/10/20 19:35 POC Hgb 10.9 g/dl (12.0-16.0) L 11/10/20 19:41 Hct 34.2 % (37-47) L 11/10/20 19:35 POC Hct 32 % (37-47) L 11/10/20 19:41 MCV 95.8 fL (80-100) 11/10/20 19:35 MCH 30.8 pg (25-34) 11/10/20 19:35 MCHC 32.2 g/dL (32-36) 11/10/20 19:35 RDW Std Deviation 49.2 fL (36.4-46.3) H 11/10/20 19:35 RDW Coeff of Matt 14.0 % (11.5-14.5) 11/10/20 19:35 Plt Count 555 K/uL (130-400) H 11/10/20 19:35 MPV 8.9 fL (7.4-10.4) 11/10/20 19:35 Immature Gran % (Auto) 0.6 % 11/10/20 19:35 Neut % (Auto) 77.1 % 11/10/20 19:35 Lymph % (Auto) 15.9 % 11/10/20 19:35 [place] % (Auto) 5.4 % 11/10/20 19:35 Eos % (Auto) 0.9 % 11/10/20 19:35 Baso % (Auto) 0.1 % 11/10/20 19:35 Neut # (Auto) 15.33 K/uL (1.4-6.5) H 11/10/20 19:35 Lymph # (Auto) 3.16 K/uL (1.2-3.4) 11/10/20 19:35 [place] # (Auto) 1.08 K/uL (0.11-0.59) H 11/10/20 19:35 Eos # (Auto) 0.17 K/uL (0-0.5) 11/10/20 19:35 Baso # (Auto) 0.01 K/uL (0-0.2) 11/10/20 19:35 Immature Gran # (Auto) 0.11 K/uL (0.00-0.02) H 11/10/20 19:35 PT 10.6 Seconds (9.0-12.0) 11/10/20 19:35 INR 1.0 (0.9-1.1) 11/10/20 19:35 APTT 24.7 Seconds (21.0-31.0) 11/10/20 19:35 PTT Ratio 0.9 11/10/20 19:35 POC Sodium 136 mmol/L (135-144) 11/10/20 19:41 Sodium 139 mmol/L (136-145) 11/10/20 19:35 POC Potassium 4.6 mmol/L (3.3-5.0) 11/10/20 19:41 Potassium 4.7 mmol/L (3.5-5.1) 11/10/20 19:35 POC Chloride 97 mmol/L (101-112) L 11/10/20 19:41 Chloride 103 mmol/L (98-107) 11/10/20 19:35 Carbon Dioxide 36 mmol/L (21-32) H 11/10/20 19:35 POC Total CO2 35 mmol/L (24-31) H 11/10/20 19:41 Anion Gap 0 (3-11) L 11/10/20 19:35 POC Anion Gap 10.0 mmol/L (16-25) L 11/10/20 19:41 POC BUN 34 mg/dl (7-18) H 11/10/20 19:41 BUN 38 mg/dl (7-18) H 11/10/20 19:35 Creatinine 0.57 mg/dl (0.6-1.2) L 11/10/20 19:35 POC Creatinine 0.7 mg/dl (0.6-1.3) 11/10/20 19:41 Est Cr Clr Drug Dosing 87.1 ml/min 11/10/20 19:35 Est GFR ( Amer) 103.6 11/10/20 19:35 Est GFR (Non-Af Amer) 89.4 11/10/20 19:35 BUN/Creatinine Ratio 67.1 (10-20) H 11/10/20 19:35 Glucose 146 mg/dl (70-99) H 11/10/20 19:35 POC Glucose 160 mg/dl (70-99) H 11/11/20 01:52 POC Glucose (other) 149 mg/dl (70-99) H 11/10/20 19:41 Lactate 1.6 mmol/L (0.4-2.0) 11/10/20 19:35 Calcium 8.4 mg/dl (8.5-10.1) L 11/10/20 19:35 POC Ioniz Calcium Megan 1.18 mmol/l (1.12-1.32) 11/10/20 19:41 Magnesium 2.9 mg/dl (1.8-2.4) H 11/10/20 19:35 Total Bilirubin 0.3 mg/dl (0.2-1) 11/10/20 19:35 AST 16 U/L (15-37) 11/10/20 19:35 ALT 7 U/L (12-78) L 11/10/20 19:35 Alkaline Phosphatase 89 U/L (45-117) 11/10/20 19:35 Troponin I 0.051 ng/ml (0-0.045) H* 11/10/20 19:35 Total Protein 6.6 gm/dl (6.4-8.2) 11/10/20 19:35 Albumin 1.9 gm/dl (3.4-5.0) L 11/10/20 19:35 Globulin 4.7 gm/dl (2.5-4.0) H 11/10/20 19:35 Albumin/Globulin Ratio 0.4 (0.9-2) L 11/10/20 19:35 Urine Color Dark Yellow 11/10/20 20:50 Urine Appearance Turbid (Clear) A 11/10/20 20:50 Urine pH 8.0 (4.5-7.5) H 11/10/20 20:50 Ur Specific [place] 1.026 (1.000-1.030) 11/10/20 20:50 Urine Protein 2+ (Negative) H 11/10/20 20:50 Urine Glucose (UA) Negative (Negative) 11/10/20 20:50 Urine Ketones Trace (Negative) H 11/10/20 20:50 Urine Blood 3+ (Negative) H 11/10/20 20:50 Urine Nitrite Positive (Negative) A 11/10/20 20:50 Urine Bilirubin Negative (Negative) 11/10/20 20:50 Urine Urobilinogen Negative (Negative) 11/10/20 20:50 Ur Leukocyte Esterase 2+ (Negative) H 11/10/20 20:50 Urine WBC (Auto) >30 /hpf (0-5) H 11/10/20 20:50 Urine RBC (Auto) 5-10 /hpf (0-4) H 11/10/20 20:50 U Hyaline Cast (Auto) 0 /lpf (0-5) 11/10/20 20:50 U Epithel Cells (Auto) >30 /lpf (0-5) H 11/10/20 20:50 Urine Bacteria (Auto) 4+ (Negative) H 11/10/20 20:50 Urine Crystals Calcium Oxalate (None Prsent) A 11/10/20 20:50 Calcium Oxalate Crystal Present (None Prsent) A 11/10/20 20:50 Urine Yeast Not Reportable 11/10/20 20:50 COVID-19 Eval Order CovFluRsv at [facility] 11/10/20 22:05 SARS-CoV-2 (PCR) NEGATIVE (Negative) 11/10/20 22:05 Influenza Type A (PCR) Negative (Neg) 11/10/20 22:05 Influenza Type B (PCR) Negative (Neg) 11/10/20 22:05 RSV (RT-PCR) Negative (Neg) 11/10/20 22:05 Blood Type A Negative 11/10/20 19:33 Antibody Screen NEGATIVE 11/10/20 19:33 Impressions Chest X-Ray 11/10/20 19:17 XR chest 1V portable CLINICAL HISTORY: SEPSIS COMPARISON STUDY: 12/30/2013 FINDINGS: The heart is enlarged. There is slight interstitial thickening. There is no lobar consolidation. There are basilar opacities likely atelectatic[. There are no large pleural effusions IMPRESSION: 1. Cardiomegaly and mild nonspecific interstitial thickening. This could be related to atelectasis, mild pulmonary vascular congestion, or an infectious/inflammatory process. Clinical and radiographic follow-up recommended ACT 112: Negative or not required by law. Electronically signed by: Roberto Díaz M.D. 11/10/2020 7:48 PM Code Status & VTE Plan Code Status DNR/DNI VTE Prophylaxis Plan VTE Prophylaxis will be ordered: Yes PG Care Time/CCT Total # of Minutes Spent Total Time Spent with Patient: Total time spent is greater than 50% in coordination of care (as documented) at patient's floor/unit and/or counseling patient: Coding Level of Care Code 16107 Initial Inpt Care Lvl 3 Diagnoses Elevated troponin R77.8 Acute UTI (urinary tract infection) N39.0 Decubitus ulcer of sacral area L89.159 Diabetes E11.9 Dementia F03.90 Parkinson's disease G20 Hypothyroidism E03.9 Coffee ground emesis K92.0
[2020-11-11] MEDS ORDERED: GLUCOSE 10 TABS/TUBE PO PRN (00:52)
[2020-11-11] MEDS ORDERED: DEXTROSE 50% 50 ML SYRINGE IV PRN (00:52)
[2020-11-11] MEDS ORDERED: PIPERACILL/TAZOBAC CONSULT ACTIVE PRN (00:52)
[2020-11-11] MEDS ORDERED: MoRPHine SULFATE 10 MG/0.5 ML UDP PO PRN (00:52)
[2020-11-11] MEDS ORDERED: GLUCOSE 40% GEL 15 GM TUBE PO PRN (00:52)
[2020-11-11] MEDS ORDERED: SODIUM CHLORIDE 0.65% NA SOLN 45 ML (OCEAN) NAE PRN (00:52)
[2020-11-11] MEDS ORDERED: bisacodyL 10 MG SUPP PR PRN (00:52)
[2020-11-11] MEDS ORDERED: MAGNESIUM HYDROXIDE SUSP 30 ML UDC PO PRN (00:52)
[2020-11-11] MEDS ORDERED: CARBOHYDRATES FOR HYPOGLYCEMIA PO PRN (00:52)
[2020-11-11] MEDS ORDERED: NON-FORMULARY MEDICATION (Protein Supplement Liquid) PO SCH (00:52)
[2020-11-11] MEDS ORDERED: ONDANSETRON INJ 2 MG/ML 2 ML VIAL IV PRN (00:52)
[2020-11-11] MEDS ORDERED: GLUCAGON FOR INJ 1 MG VIAL SQ PRN (00:52)
[2020-11-11] MEDS: SODIUM CHLORIDE 0.9% 1000ML 1,000 ML IV SCH ×4 (01:00→23:12)
[2020-11-11] MEDS ORDERED: ACETAMINOPHEN 325 MG TAB PO PRN (01:10)
[2020-11-11] MEDS ORDERED: TROLAMINE SALICYLATE 10% CRM 255 APPLN/85 GM TUBE EXT PRN (01:10)
[2020-11-11] MEDS ORDERED: PIPERACILLIN/TAZOBACTAM 3.375 GM in DEXTROSE 5% 100 ML IV ONE (01:30)
[2020-11-11] MEDS: CHECK fentaNYL PATCH PLACEMENT SCH ×4 (01:48→23:14)
[2020-11-11] MEDS: BENZTROPINE MESYLATE 0.5 MG TAB PO SCH ×4 (01:48→22:20)
[2020-11-11] MEDS: DOCUSATE SODIUM 100 MG CAP PO SCH ×4 (01:48→23:12)
[2020-11-11] MEDS: PIPERACILLIN/TAZOBACTAM 3.375 GM in DEXTROSE 5% 100 ML IV SCH ×3 (06:05→23:13)
[2020-11-11] MEDS: FAMOTIDINE 20 MG in SYRINGE 3 ML IV SCH ×2 (06:07→17:34)
[2020-11-11 07:59] LABS: Hematocrit (blood only) 33.3 % (37-47); Hemoglobin 10.3 g/dL (12.0-16.0)
[2020-11-11] MEDS: ASCORBIC ACID 500 MG TAB PO SCH ×3 (08:18→23:46)
[2020-11-11] MEDS: CARBIDOPA/LEVODOPA 25/100MG TAB PO SCH ×5 (08:18→22:20)
[2020-11-11] MEDS: GABAPENTIN 100 MG CAP PO SCH ×4 (08:18→22:20)
[2020-11-11] MEDS: INSULIN ASPART 100 UNITS/ML 3 ML PEN SC SCH ×4 (08:23→21:28)
[2020-11-11 08:25] LABS: Estimated Average Glucose 174 mg/dl; Hemoglobin A1C 7.7 % (4.5-5.6)
[2020-11-11] MEDS ORDERED: CEROVITE ADV FORMULA TAB PO SCH (09:00)
[2020-11-11] MEDS ORDERED: SENNA 8.6 MG TAB PO SCH (09:00)
[2020-11-11] MEDS ORDERED: CeleBREX 200 MG CAP PO SCH (09:00)
--- NOTE | 2020-11-11 09:03 | CT Scan Report ---
ABDOMEN AND PELVIS CT WITHOUT CONTRAST CT DOSE: 1413.25 mGy.cm HISTORY: Vomiting. GI bleed. Fever. TECHNIQUE: Multiaxial CT images of the abdomen and pelvis were performed without contrast. A dose lo wering technique was utilized adhering to the principles of ALARA. COMPARISON STUDY: None. FINDINGS: Patchy densities within the bilateral lower lobes. No pneumoperitoneum. No pneumatosis. Sma ll hiatus hernia. Moderate size fat-containing umbilical hernia. There is a Prasad catheter within the decompressed bladder. Multiple calcified uterine fibroids are noted. Dominant fibroid measures appro ximately 8 cm. This results in the enlarged uterus. Moderate to large amount well-formed stool within the rectum with a 8 cm rectal stool ball. There is a large midline sacral decubitus ulcer which gavin ures 7.5 cm. This abuts but does not invade into the posterior rectal wall. The distal sacrum/coccyx are absent. This could be due to prior resection or erosive change from osteomyelitis. The gas-filled ulcer abuts the residual distal sacrum. Therefore, by definition this would be consistent with sacra l osteomyelitis. Colonic diverticulosis. No evidence for acute diverticulitis. Moderate well-formed s tool within the colon. There is suboptimal evaluation for bowel pathology due to the lack of intraven ous and oral contrast. However, there is no definite bowel wall thickening or obstruction. A 3 cm duo denal diverticulum is noted. No retroperitoneal lymphadenopathy. Calcified plaque within the normal c aliber abdominal aorta. The unenhanced liver, spleen, pancreas, and adrenal glands unremarkable. No h ydronephrosis. Punctate calcifications within the left renal sinus appears be vascular. Probable chol elithiasis. No gallbladder wall thickening. IMPRESSION: 1. A 7.5 cm sacral decubitus ulcer. The coccyx and distal sacrum are not identified and could be surg ically resected or could be eroded from the sacral decubitus ulcer. The gas within the sacral decubit us ulcer abuts the residual distal sacrum. Therefore, by definition this be consistent with sacral os teomyelitis. 2. Moderate to large amount well-formed stool seen within the colon. 3. No definite bowel wall thickening or obstruction. 4. Cholelithiasis. 5. Additional findings as described above. ACT 112: Negative or not required by law. Electronically signed by: Bacilio Nesbitt M.D. 11/11/2020 9:02 AM
[2020-11-11] MEDS: DAKIN'S SOLN 0.125% QUARTER STRENGTH 1000 ML BTL EXT SCH (09:12)
[2020-11-11] MEDS: MENTHOL-ZINC OXIDE 360 APPLN/120 GM TUBE EXT SCH ×2 (09:13→09:20)
[2020-11-11 13:13] LABS: Hemoglobin 10.5 g/dL (12.0-16.0)
[2020-11-11] MEDS: SOD PHOSPHATE/SOD BIPHOSPHATE ENEMA 132 ML BTL PR PRN (16:17)
[2020-11-11] MEDS ORDERED: fentaNYL 50 MCG/HR TDSY TD SCH (16:30)
--- NOTE | 2020-11-11 17:33 | Electrocardiogram Report ---
Test Reason : Blood Pressure : / mmHG Vent. Rate : 081 BPM Atrial Rate : 081 BPM P-R Int : 160 ms QRS Dur : 104 ms QT Int : 380 ms P-R-T Axes : 054 018 010 degrees QTc Int : 441 ms Normal sinus rhythm RSR' or QR pattern in V1 suggests right ventricular conduction delay Abnormal ECG When compared with ECG of 10-FEB-2014 12:30, RSR' pattern in V1 is now Present Confirmed by Ish Villagomez ([id number]) on 11/11/2020 5:32:34 PM Referred By: [facility] Confirmed By:Evan Villagomez
[2020-11-11 20:16] LABS: Hematocrit (blood only) 30.8 % (37-47); Hemoglobin 9.8 g/dL (12.0-16.0)
--- NOTE | 2020-11-11 20:51 | Hospitalist Progress Note ---
Date of Service November 11, 2020 Assessment & Plan (1) Pressure ulcer of sacral region, stage 4: severe with significant erosion of coccyx/lower sacrum. present for 6-12 months or longer. slim to no chance of healing given bed-bound status, poor nutrition (albumin 1.9), stooling into the wound, etc. cont local wound care. wound care team consulted. (2) Sacral osteomyelitis: the chances of healing/resolution are low to none comfort care/hospice likely best option (3) Fecal impaction: improving s/p multiple enemas since admission d/c colace place on senna 2 tabs BID for maintenance PD, narcotics, bed-bound status make her constipation severe (4) Acute UTI (urinary tract infection): Follow urine culture and sensitivity Zosyn 3.375 g IV every 8 hours for now (5) Dementia: severe, progressive likely 2nd parkinson's (6) Failure to thrive: severe (7) Parkinson's disease: Continue carbidopa levodopa severe (8) Elevated troponin: doubt ACS likely myocardial demand ischemia (9) Diabetes: lantus 15 units HS novolog correction hold Levemir, Metformin and glimepiride. Placed on Accu-Cheks before meals and at bedtime (10) Hypothyroidism: Continue levothyroxine TSH wnl 08/2020 (11) Chronic narcotic use: for pain related to sacral decub, etc (12) Protein calorie malnutrition: (13) Palliative care patient: by way of sister Veronica's report it sounds as if [facility] was transitioning to comfort care pathway over the last few weeks/months Veronica realizes and agrees that Sarah Beth will continue to decline and that the sacral decub will not heal will involve palliative care team here to complete POLST, refine goals of care, and hopefully transition to hospice Admission and Anticipated Discharge Date Admission Date: November 10, 2020 Subjective patient unable to give any meaningful history or ros however, while rolling her to look at sacral decubitus ulcer, she did say "pleas e stop - leave me alone" lengthy discussion had with pt's sister, Veronica, by phone Veronica reports decub has been present for 6-12 months has not improved Veronica and family have been allowed twice weekly "compassionate" visits to [facility] over last few months to see Sarah Beth patient has been declining for many months and decline worsened following a bout with COVID in 05/2021 PD worse dementia worse eating is poor bed-bound essentially Review of Systems Review of Systems: Unobtainable due to cognitive status Physical Exam Constitutional: + acute distress (Agitated ), + ill appearing, + altered m ental status and + frail appearing ENMT: Mouth: + dry oral mucous membranes Respiratory: normal respiratory effort, lungs clear to auscultation Cardiovascular: Rate/Rhythm: regular rate and regular rhythm Heart Sounds: normal S1 and normal S2; no murmur Vessels: posterior tibial pulses present and dorsalis pedis pulses present; no JVD Extremities: + edema (Trace b/l ) Gastrointestinal (Abdomen): normal bowel sounds, soft, nontender, no hepatosplenomegaly Inspection/Auscultation: + abdomen distended (Mild) and + visible herniation (Umbilical - reducible ) Skin: very large sacral decub ulcer - stage 4 - lower vertebral column (s acrum) is visible; the ulcer tracks extensively underneath the skin; there is no odor; the ulcer is very deep - several cms in depth Neurologic: Motor/Sensory: + tremor Psychiatric: Orientation: oriented to person; + not oriented to place and + not oriented to time Results & Data Results & Data ([facility]) Vital Signs (Past 12 Hours) Vital Signs Temp Pulse Resp BP Pulse Ox 11/11/20 17:14 20 95 11/11/20 15:37 36.8 C 104 H 18 171/74 H 94 Laboratory Results Laboratory Results - last 24 hr 11/10/20 11/10/20 11/10/20 20:50 22:05 22:05 Hgb Hct POC Glucose Estimat Average Glucose Hemoglobin A1c Urine Color Dark Yellow Urine Appearance Turbid A Urine pH 8.0 H Ur Specific [place] 1.026 Urine Protein 2+ H Urine Glucose (UA) Negative Urine Ketones Trace H Urine Blood 3+ H Urine Nitrite Positive A Urine Bilirubin Negative Urine Urobilinogen Negative Ur Leukocyte Esterase 2+ H Urine WBC (Auto) >30 H Urine RBC (Auto) 5-10 H U Hyaline Cast (Auto) 0 U Epithel Cells (Auto) >30 H Urine Bacteria (Auto) 4+ H Urine Crystals Calcium Oxalate A Calcium Oxalate Crystal Present A Urine Yeast Not Reportable COVID-19 Eval Order CovFluRsv at [facility] SARS-CoV-2 (PCR) NEGATIVE Influenza Type A (PCR) Negative Influenza Type B (PCR) Negative RSV (RT-PCR) Negative 11/11/20 11/11/20 11/11/20 01:52 07:22 07:22 Hgb 10.3 L Hct 33.3 L POC Glucose 160 H Estimat Average Glucose 174 Hemoglobin A1c 7.7 H Urine Color Urine Appearance Urine pH Ur Specific [place] Urine Protein Urine Glucose (UA) Urine Ketones Urine Blood Urine Nitrite Urine Bilirubin Urine Urobilinogen Ur Leukocyte Esterase Urine WBC (Auto) Urine RBC (Auto) U Hyaline Cast (Auto) U Epithel Cells (Auto) Urine Bacteria (Auto) Urine Crystals Calcium Oxalate Crystal Urine Yeast COVID-19 Eval Order SARS-CoV-2 (PCR) Influenza Type A (PCR) Influenza Type B (PCR) RSV (RT-PCR) 11/11/20 11/11/20 11/11/20 08:22 12:24 12:47 Hgb 10.5 L Hct 33.0 L POC Glucose 200 H 184 H Estimat Average Glucose Hemoglobin A1c Urine Color Urine Appearance Urine pH Ur Specific [place] Urine Protein Urine Glucose (UA) Urine Ketones Urine Blood Urine Nitrite Urine Bilirubin Urine Urobilinogen Ur Leukocyte Esterase Urine WBC (Auto) Urine RBC (Auto) U Hyaline Cast (Auto) U Epithel Cells (Auto) Urine Bacteria (Auto) Urine Crystals Calcium Oxalate Crystal Urine Yeast COVID-19 Eval Order SARS-CoV-2 (PCR) Influenza Type A (PCR) Influenza Type B (PCR) RSV (RT-PCR) 11/11/20 11/11/20 11/11/20 16:56 20:04 20:27 Hgb 9.8 L Hct 30.8 L POC Glucose 238 H 206 H Estimat Average Glucose Hemoglobin A1c Urine Color Urine Appearance Urine pH Ur Specific [place] Urine Protein Urine Glucose (UA) Urine Ketones Urine Blood Urine Nitrite Urine Bilirubin Urine Urobilinogen Ur Leukocyte Esterase Urine WBC (Auto) Urine RBC (Auto) U Hyaline Cast (Auto) U Epithel Cells (Auto) Urine Bacteria (Auto) Urine Crystals Calcium Oxalate Crystal Urine Yeast COVID-19 Eval Order SARS-CoV-2 (PCR) Influenza Type A (PCR) Influenza Type B (PCR) RSV (RT-PCR) PG Care Time/CCT Total # of Minutes Spent Total Time Spent with Patient: Total time spent is greater than 50% in coordination of care (as documented) at patient's floor/unit and/or counseling patient: Coding Level of Care Code 45212 Subseq Hosp Care Lvl 3 Diagnoses Pressure ulcer of sacral region, stage 4 L89.154 Sacral osteomyelitis M46.28 Fecal impaction K56.41 Acute UTI (urinary tract infection) N39.0 Dementia F03.90 Failure to thrive Parkinson's disease G20 Elevated troponin R77.8 Diabetes E11.9 Hypothyroidism E03.9 Chronic narcotic use F11.90 Protein calorie malnutrition E46 Palliative care patient Z51.5
[2020-11-11] MEDS ORDERED: INSULIN DETEMIR FLEXPEN/FLEX TOUCH 100 UNITS/ML 3ML SQ SCH (21:00)
[2020-11-11] MEDS: LEVOTHYROXINE SODIUM 75 MCG TABLET PO SCH ×2 (21:25→22:21)
[2020-11-11] MEDS: LEVOTHYROXINE SODIUM 200 MCG TABLET PO SCH ×2 (21:25→22:21)
[2020-11-11] MEDS: FLUTICASONE PROPIONATE NA SPR 16 GM BTL NAE SCH ×2 (21:25→22:20)
[2020-11-11] MEDS: PANTOprazole 40 MG TAB PO SCH ×2 (21:26→22:20)
[2020-11-11] MEDS: INSULIN GLARGINE SOLOSTAR 100 UNITS/ML 3 ML PEN SC SCH (21:54)
[2020-11-11] MEDS: SENNA 8.6 MG TAB PO SCH (22:21)
[2020-11-11] MEDS ORDERED: VANCOMYCIN CONSULT ACTIVE PRN (22:30)
--- NOTE | 2020-11-11 22:32 | Communication Note ---
Date of Service: November 11, 2020 nursing notified that patient had G+ cocci growing 1/. Although this may represent contaminant I am concerned given that she is coming from a care facility and he has had MRSA grow in the past. - started on Vancomycin
[2020-11-11] MEDS: EMOLLIENT OINTMENT 1 GM EXT SCH (23:13)
[2020-11-11] MEDS ORDERED: VANCOMYCIN HCL 1,500 MG in SODIUM CHLORIDE 0.9% 500 ML IV STA (23:18)
--- NOTE | 2020-11-12 00:28 | Communication Note ---
Date of Service: November 12, 2020 I was contacted by pharmacy and there was concern for the patient having prior history of ESBL infection that Zosyn may not cover current infection if she is colonized. - switched Zosyn to Ertapenem
[2020-11-12] MEDS: ERTAPENEM SODIUM 1,000 MG in SODIUM CHLORIDE 0.9% 50 ML IV SCH ×2 (01:17→23:52)
[2020-11-12 01:38] LABS: Creatinine Clr Calc Pharmacy 101.3 ml/min; Est GFR (African American) 108.2; Est GFR (Non-African American) 93.4
--- NOTE | 2020-11-12 05:34 | Pharmacy Report ---
Pharmacy Abx Dose Short Note - Date of Service November 12, 2020 - Assessment & Plan Assessment * Ms Roberts is a 75 year old F receiving Vancomycin for treatment of bacteremia (and sacral osteomyelitis). * Blood cx 1/2 with gram positive cocci. UCx with gram negative bacilli. 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 * WBC elevated on admission (19.9) and pt has been febrile. * Other PMH includes Parkinson's disease, lymphedema, dementia. Pt is a resident at a long-term care facility. * Vancomycin added overnight d/t positive blood cultures (1 of 2). Zosyn switched to Ertapenem d/t history of ESBL in sacral cultures and current diagnosis of sacral osteomyelitis (and UTI). Plan Vancomycin * Vancomycin 1500mg IV x1 dose, then * Vancomycin 1gm IV q8h * Patient meets criteria for vancomycin AUC dosing nomogram * AUC/RABIA is the preferred PK/PD target for vancomycin * Target AUC/RABIA = 400-600 * AUC guided dosing is effective and associated with decreased risk of nephrotoxicity * Goal trough level for bacteremia/osteomyelitis: ~18 to 22 mcg/mL * Trough level ordered for: 11/13, prior to the 4th maintenance dose Ertapenem 1gm IV q24h -- for UTI and sacral osteomyelitis (with history of ESBL in sacral cultures) Pharmacy will continue to follow and will adjust dose/frequency as necessary. Thank you.
[2020-11-12] MEDS: FAMOTIDINE 20 MG in SYRINGE 3 ML IV SCH ×2 (05:52→17:15)
[2020-11-12] MEDS ORDERED: VANCOMYCIN HCL 1,000 MG in SODIUM CHLORIDE 0.9% 250 ML IV SCH (08:00)
[2020-11-12] MEDS: MENTHOL-ZINC OXIDE 360 APPLN/120 GM TUBE EXT SCH (08:29)
[2020-11-12] MEDS: CHECK fentaNYL PATCH PLACEMENT SCH ×3 (08:29→20:50)
[2020-11-12] MEDS: CARBIDOPA/LEVODOPA 25/100MG TAB PO SCH ×4 (08:30→20:09)
[2020-11-12] MEDS: BENZTROPINE MESYLATE 0.5 MG TAB PO SCH ×2 (08:30→20:06)
[2020-11-12] MEDS: DAKIN'S SOLN 0.125% QUARTER STRENGTH 1000 ML BTL EXT SCH (08:30)
[2020-11-12] MEDS: GABAPENTIN 100 MG CAP PO SCH ×3 (08:31→20:05)
[2020-11-12] MEDS: SENNA 8.6 MG TAB PO SCH ×2 (08:31→20:05)
[2020-11-12] MEDS: INSULIN ASPART 100 UNITS/ML 3 ML PEN SC SCH ×4 (08:46→20:44)
[2020-11-12] MEDS ORDERED: CYANOCOBALAMIN 1000 MCG/ML VIAL IM SCH (09:00)
--- NOTE | 2020-11-12 12:21 | Palliative Care Consultation ---
Date of Consultation November 12, 2020 Assessment & Plan (1) Palliative care encounter: I spoke with Sarah Beth' sister, Veronica Roberts, about her care. She understands that Sarah Beth is declining and agrees with comfort directed approach to her care. She confirms that Sarah Beth would not want resuscitation and her code status is DNR. Her preference would be for her to remain at [facility] and not have to return to the hospital. We discussed additional support with hospice care to follow at [facility] and she is agreeable to this. [employer] has been the payer for her care at [facility] and she does have medicare. Palliative care will continue to follow and talk with Veronica. Plan to complete POLST prior to discharge back to [facility]. (2) Parkinson's disease: (3) Pressure ulcer of sacral region, stage 4: (4) Protein calorie malnutrition: History of Present Illness Reason for Consultation: goals of care Requesting Physician: Dr. Jacobson Attending Physician: Kwaku Jacobson History of Present Illness 75 yo lady with advanced Parkinson's disease, who resides at [facility]. She was admitted with abdominal pain, fecal impaction and possible GI bleed. She has not had any indications of GI bleed since admission. She is being treated for a UTI and has a very large Stage IV sacral decubitus ulcer. She has had chronic osteomyelitis and had been on IV antibiotics but developed a thrombus and these were stopped per her sister. Since that time, the focus of her care has been primarily comfort. She has comorbid CKD and diabetes. She did have covid in May and her sister has noticed a functional decline since then. She has been able to visit her at [facility] for compassionate visits and says that Sarah Beth had been talking to her about a week ago. She is unable to provide history. Per RN, she is able to eat small amounts with feeding and does not appear to have difficulty with swallowing. Her po intake has been diminished and she has severe protein calorie malnutrition with an albumin of 1.9 on admission. We have been consulted to assist with goals of care. Allergies Allergy/AdvReac Type Severity Reaction Status Date / Time SILVER DRESSINGS AdvReac Mild Burning Uncoded 11/10/20 21:08 sensation to wounds Home Medications Medication Instructions Recorded Confirmed Type bisacodyl 10 mg rectal suppository 10 mg HI DAILY PRN 05/29/19 11/10/20 History carbidopa 25 mg-levodopa 100 mg 2 tab PO QID #720 tab 05/29/19 11/10/20 Rx tablet celecoxib 200 mg capsule 200 mg PO DAILY #30 cap 05/29/19 11/10/20 History cyanocobalamin (vitamin B-12) 100 mcg IM .COMPLEX 05/29/19 11/10/20 History 1,000 mcg/mL injection solution fluticasone propionate 50 1 spray INTRANASAL HS gm 05/29/19 11/10/20 History mcg/actuation nasal spray,suspension furosemide 20 mg tablet 20 mg PO DAILY tab 05/29/19 11/10/20 History levothyroxine 200 mcg tablet 200 mcg PO QPM tab 05/29/19 11/10/20 History levothyroxine 75 mcg tablet 75 mcg PO QPM tab 05/29/19 11/10/20 History omeprazole 20 mg capsule,delayed 20 mg PO QPM cap 05/29/19 11/10/20 History release sennosides 8.6 mg tablet 8.6 mg PO QAM tab 05/29/19 11/10/20 History gabapentin 100 mg capsule 100 mg PO TID 02/13/20 11/10/20 History insulin detemir U-100 100 unit/mL 25 units SQ HS 02/13/20 11/10/20 History (3 mL) subcutaneous pen ascorbic acid (vitamin C) 500 mg 500 mg PO BID 08/08/20 11/10/20 History tablet glimepiride 2 mg tablet 2 mg PO Q12 08/08/20 11/10/20 History acetaminophen 650 mg PO Q12 PRN MDD 3g 11/10/20 11/10/20 History atropine sulfate (PF) See Rx Instructions .ROUTE .COMPLEX 11/10/20 11/10/20 History benztropine 0.5 mg PO BID 11/10/20 11/10/20 History docusate sodium [Colace] 100 mg PO BID 11/10/20 11/10/20 History fentanyl 50 mcg TRANSDERMAL [id number] 11/10/20 11/10/20 History ketoconazole 1 ea TOPICAL 2XWK 11/10/20 11/10/20 History magnesium hydroxide [Milk of 30 ml PO DAILY PRN 11/10/20 11/10/20 History Magnesia] menthol-zinc oxide [Calmoseptine] 1 applic TOPICAL DAILY 11/10/20 11/10/20 History metformin 1,000 mg PO DAILY 11/10/20 11/10/20 History methyl salicylate-menthol [Bengay 1 applic TOPICAL QS PRN 11/10/20 11/10/20 History Greaseless] morphine concentrate 10 mg PO . EVERY 1 HOUR PRN 11/10/20 11/10/20 History multivitamin,tx-minerals 1 tab PO DAILY 11/10/20 11/10/20 History [Therems-M (old)] ondansetron HCl [Zofran] 4 mg PO Q6H PRN 11/10/20 11/10/20 History protein supplement 1 ea PO UD 11/10/20 11/10/20 History sodium chloride [Saline Nasal] 2 spray INTRANASAL Q6 PRN 11/10/20 11/10/20 History sodium hypochlorite [Dakin's 1 applic TOPICAL DAILY 11/10/20 11/10/20 History Solution] sodium phosphates [Fleet Enema] 118 ml HI DAILY PRN 11/10/20 11/10/20 History white petrolatum [Hydrophor] 1 applic TOPICAL QPM 11/10/20 11/10/20 History Patient History Medical History Bilateral primary osteoarthritis of knee Dementia Diabetes Parkinson's disease Family History Father Myocardial infarction Mother Colorectal cancer Heart disease Social History Smoking Status: Never smoker Preferred Language: Urdu Communication Ability: Effective Communication Ability Comment: unable to accurately assess communication ability Current Living Situation: [facility] Current Living Situation Comment: [facility] Assistive Devices: Oxygen - Continuous Review of Systems Review of Systems: Unobtainable due to cognitive status [place] Symptom Assessment Scale Pain AD 0/3 at rest 1/3 with care Dyspnea by observation 0/3 Palliative Performance Score 30% Physical Exam Constitutional: + obese; no acute distress ENMT: Mouth: oral mucous membranes not dry Respiratory: normal respiratory effort; no labored breathing Cardiovascular: Extremities: no edema Gastrointestinal (Abdomen): Inspection/Auscultation: + significant pannus Musculoskeletal: Extremities: + muscle atrophy Skin: dressing on sacrum and bilateral heels Neurologic: awake resting tremor, nonverbal Results & Data ([facility]) Vital Signs (Past 12 Hours) Vital Signs Temp Pulse Resp BP Pulse Ox 11/12/20 07:12 97.9 F 64 18 167/83 H 98 11/12/20 05:57 167/76 H PG Care Time/CCT Total # of Minutes Spent Total Time Spent with Patient: Total time spent is greater than 50% in coordination of care (as documented) at patient's floor/unit and/or counseling patient: Total time spent 60 minutes with more than 50% of time spent on family support, goals of care, code status, discussion of hospice benefit. Coding Level of Care Code 79842 Inpt Consult Level 3 Diagnoses Palliative care encounter Z51.5 Parkinson's disease G20 Pressure ulcer of sacral region, stage 4 L89.154 Protein calorie malnutrition E46
[2020-11-12] MEDS: SODIUM CHLORIDE 0.9% 1000ML 1,000 ML IV SCH (17:10)
--- NOTE | 2020-11-12 19:47 | Hospitalist Progress Note ---
Date of Service November 12, 2020 Assessment & Plan (1) Pressure ulcer of sacral region, stage 4: severe with significant erosion of coccyx/lower sacrum. present for 6-12 months or longer. slim to no chance of healing given bed-bound status, poor nutrition (albumin 1.9), stooling into the wound, etc. cont local wound care. wound care team consulted and recs appreciated. given transition to hospice/comfort no plans for wound vac. (2) Sacral osteomyelitis: the chances of healing/resolution are low to none comfort care/hospice likely best option to transition to such at discharge sister in support of hospice (3) Fecal impaction: improving s/p multiple enemas since admission cont senna 2 tabs BID for maintenance PD, narcotics, bed-bound status make her constipation severe (4) Acute UTI (urinary tract infection): ESBL e.coli Will Rx with ertapenem while hospitalized but d/c abx at time of transfer back to SNF (5) Dementia: severe, progressive likely 2nd parkinson's (6) Failure to thrive: severe 2nd dementia, PD, etc (7) Parkinson's disease: Continue carbidopa levodopa severe (8) Elevated troponin: likely myocardial demand ischemia (9) Diabetes: lantus 15 units HS novolog correction holding Levemir, Metformin and glimepiride. at d/c will discontinue all therapies for DM as well as BSG checks (10) Hypothyroidism: Continue levothyroxine TSH wnl 08/2020 (11) Chronic narcotic use: for pain related to sacral decub, etc fentanyl patch q3d (12) Protein calorie malnutrition: (13) Palliative care patient: by way of sister Vreonica's report it sounds as if [facility] was transitioning to comfort care pathway over the last few weeks/months Veronica realizes and agrees that Sarah Beth will continue to decline and that the sacral decub will not heal palliative care consultation MUCH appreciated POLST form to be completed tomorrow transition to hospice at discharge Admission and Anticipated Discharge Date Admission Date: November 10, 2020 Subjective patient confused unable to offer meaningful history or ROS stated twice "I have to go and leave" gets agitated easily during the exam Review of Systems Review of Systems: Unobtainable due to cognitive status Physical Exam Constitutional: + ill appearing, + altered mental status and + frail appearing; no acute distress easily agitated ENMT: external ear and nose normal, oropharynx normal Respiratory: normal respiratory effort, lungs clear to auscultation Cardiovascular: Rate/Rhythm: regular rate and regular rhythm Heart Sounds: normal S1 and normal S2; no murmur Vessels: posterior tibial pulses present and dorsalis pedis pulses present; no JVD Extremities: + edema (Trace b/l ) Gastrointestinal (Abdomen): normal bowel sounds, soft, nontender, no hepatosplenomegaly Inspection/Auscultation: + abdomen distended (Mild) and + visible herniation (Umbilical - reducible ) Skin: sacral decub not examined today Neurologic: Motor/Sensory: + tremor Psychiatric: Orientation: oriented to person; + not oriented to place and + not oriented to time Results & Data Results & Data ([facility]) Vital Signs (Past 12 Hours) Vital Signs Temp Pulse Resp BP Pulse Ox 11/12/20 16:07 37.3 C 84 16 148/61 H 94 Laboratory Results Laboratory Results - last 24 hr 11/11/20 11/11/20 11/12/20 20:04 20:27 00:55 Hgb 9.8 L Hct 30.8 L Creatinine 0.50 L Est Cr Clr Drug Dosing 101.3 Est GFR ( Amer) 108.2 Est GFR (Non-Af Amer) 93.4 POC Glucose 206 H 11/12/20 11/12/20 11/12/20 08:01 12:03 17:09 Hgb Hct Creatinine Est Cr Clr Drug Dosing Est GFR ( Amer) Est GFR (Non-Af Amer) POC Glucose 122 H 178 H 171 H urine cx - ESBL e.coli blood cx's - 1/4 + for coag neg staph PG Care Time/CCT Total # of Minutes Spent Total Time Spent with Patient: Total time spent is greater than 50% in coordination of care (as documented) at patient's floor/unit and/or counseling patient: Coding Level of Care Code 54788 Subseq Hosp Care Lvl 2 Diagnoses Pressure ulcer of sacral region, stage 4 L89.154 Sacral osteomyelitis M46.28 Fecal impaction K56.41 Acute UTI (urinary tract infection) N39.0 Dementia F03.90 Failure to thrive Parkinson's disease G20 Elevated troponin R77.8 Diabetes E11.9 Hypothyroidism E03.9 Chronic narcotic use F11.90 Protein calorie malnutrition E46 Palliative care patient Z51.5
[2020-11-12] MEDS: PANTOprazole 40 MG TAB PO SCH (20:06)
[2020-11-12] MEDS: LEVOTHYROXINE SODIUM 200 MCG TABLET PO SCH (20:09)
[2020-11-12] MEDS: LEVOTHYROXINE SODIUM 75 MCG TABLET PO SCH (20:09)
[2020-11-12] MEDS: FLUTICASONE PROPIONATE NA SPR 16 GM BTL NAE SCH (20:10)
[2020-11-12] MEDS: EMOLLIENT OINTMENT 1 GM EXT SCH (20:10)
[2020-11-12] MEDS: INSULIN GLARGINE SOLOSTAR 100 UNITS/ML 3 ML PEN SC SCH (20:44)
[2020-11-13] MEDS ORDERED: VANCOMYCIN TROUGH ONE (07:30)
[2020-11-13] MEDS: INSULIN ASPART 100 UNITS/ML 3 ML PEN SC SCH ×4 (09:29→20:45)
[2020-11-13] MEDS: CHECK fentaNYL PATCH PLACEMENT SCH ×3 (09:30→23:04)
[2020-11-13] MEDS: DAKIN'S SOLN 0.125% QUARTER STRENGTH 1000 ML BTL EXT SCH (09:30)
[2020-11-13] MEDS: SENNA 8.6 MG TAB PO SCH ×2 (09:31→20:50)
[2020-11-13] MEDS: GABAPENTIN 100 MG CAP PO SCH ×3 (09:31→20:51)
[2020-11-13] MEDS: CARBIDOPA/LEVODOPA 25/100MG TAB PO SCH ×4 (09:32→20:51)
[2020-11-13] MEDS: BENZTROPINE MESYLATE 0.5 MG TAB PO SCH ×2 (09:32→20:50)
[2020-11-13] MEDS: MENTHOL-ZINC OXIDE 360 APPLN/120 GM TUBE EXT SCH (09:33)
[2020-11-13 09:40] LABS: Creatinine Clr Calc Pharmacy 158.3 ml/min; Est GFR (African American) 125.3; Est GFR (Non-African American) 108.1
--- NOTE | 2020-11-13 10:16 | Palliative Care Progress Note ---
Date of Service November 13, 2020 Assessment & Plan (1) Palliative care encounter: She reports being comfortable at this time. Given decubitus ulcer, comorbidities and severe protein calorie malnutrition, her overall prognosis is poor. I spoke with her sister, Veronica, yesterday about goals of care and she would like focus to be on comfort. We discussed plan for return to [facility] with hospice to follow. I tried to call Veronica x 3 to complete POLST prior to discharge. No answer. I was able to speak with Veronica Roberts, Sarah Beth' sister, by phone at 1230. We reviewed POLST form over the phone and completed for DNR/DNI, comfort measures only, determine antibiotics as needed and short term trial of hydration if indicated but no artificial feeding. POLST is completed and on chart. (2) Protein calorie malnutrition: (3) Sacral osteomyelitis: (4) Pressure ulcer of sacral region, stage 4: (5) Parkinson's disease: (6) Dementia: (7) Diabetes: Admission and Anticipated Discharge Date Admission Date: November 10, 2020 Subjective More alert, conversant. Answers questions but not always appropriately. Denies pain or dyspnea. Ate only a few bites of oatmeal for breakfast. Refused food when offered. Review of Systems Review of Systems: Josephine Symptom Assessment Scale Pain 0/3 Dyspnea 0/3 Anxiety 0/3 Nausea 0/3 Anorexia 2/3 Drowsiness 1/3 Palliative Performance Score 30% Physical Exam Constitutional: + obese; no acute distress ENMT: Ears: no hearing impairment Mouth: oral mucous membranes not dry Respiratory: normal respiratory effort; no labored breathing Gastrointestinal (Abdomen): Inspection/Auscultation: + significant pannus umbilical hernia Musculoskeletal: Extremities: + muscle atrophy Skin: dressings on sacrum and b/l heels Psychiatric: Orientation: oriented to person and oriented to place Results & Data ([facility]) Vital Signs (Past 12 Hours) Vital Signs Temp Pulse Resp BP BP Pulse Ox 11/13/20 07:50 97.7 F 70 18 172/81 H 98 11/12/20 23:22 98.1 F 88 16 143/86 H 93 PG Care Time/CCT Total # of Minutes Spent Total Time Spent with Patient: Total time spent is greater than 50% in coordination of care (as documented) at patient's floor/unit and/or counseling patient: Total time spent 40 minutes with more than 50% of time spent on goals of care, POLST form, family update and education. Coding Level of Care Code 73899 Subseq Hosp Care Lvl 3 Diagnoses Palliative care encounter Z51.5 Protein calorie malnutrition E46 Sacral osteomyelitis M46.28 Pressure ulcer of sacral region, stage 4 L89.154 Parkinson's disease G20 Dementia F03.90 Diabetes E11.9
[2020-11-13] MEDS: SOD PHOSPHATE/SOD BIPHOSPHATE ENEMA 132 ML BTL PR PRN (18:36)
[2020-11-13] MEDS: INSULIN GLARGINE SOLOSTAR 100 UNITS/ML 3 ML PEN SC SCH (20:45)
[2020-11-13] MEDS: LEVOTHYROXINE SODIUM 200 MCG TABLET PO SCH (20:51)
[2020-11-13] MEDS: PANTOprazole 40 MG TAB PO SCH (20:51)
[2020-11-13] MEDS: LEVOTHYROXINE SODIUM 75 MCG TABLET PO SCH (20:51)
[2020-11-13] MEDS: FLUTICASONE PROPIONATE NA SPR 16 GM BTL NAE SCH (20:52)
[2020-11-13] MEDS: EMOLLIENT OINTMENT 1 GM EXT SCH (20:52)
--- NOTE | 2020-11-13 23:05 | Hospitalist Progress Note ---
Date of Service November 13, 2020 Assessment & Plan (1) Pressure ulcer of sacral region, stage 4: severe; with significant erosion of coccyx/lower sacrum. present for 6-12 months or longer. slim to no chance of healing given bed-bound status, poor nutrition (albumin 1.9), stooling into the wound, etc. wound care team consulted and recs appreciated. given transition to hospice/comfort no plans for wound vac. continue local wound care as previous. (2) Sacral osteomyelitis: given the severity of this in context of advanced dementia and PD - comfort care/hospice best option sister in support of hospice d/c abx at discharge (3) Fecal impaction: improving s/p multiple enemas since admission cont senna 2 tabs BID for maintenance PD, narcotics, bed-bound status make her constipation severe give another enema tonight if no BM by then (4) Acute UTI (urinary tract infection): ESBL e.coli Will Rx with ertapenem but stop abx upon discharge back to [facility] (5) Dementia: severe, progressive likely 2nd parkinson's (6) Failure to thrive: severe 2nd dementia, PD, etc (7) Parkinson's disease: Continue carbidopa levodopa severe (8) Elevated troponin: likely myocardial demand ischemia (9) Diabetes: discontinue all therapies for DM as well as BSG checks upon discharge back to SNF (10) Hypothyroidism: Continue levothyroxine; would keep this on board, if she can swallow it, upon hospital discharge TSH wnl 08/2020 (11) Chronic narcotic use: for pain related to sacral decub, etc fentanyl patch q3d (12) Protein calorie malnutrition: ongoing no good fix for this (13) Palliative care patient: palliative care consultation MUCH appreciated POLST form completed transition to hospice at discharge likely discharge tomorrow morning Admission and Anticipated Discharge Date Admission Date: November 10, 2020 Subjective patient sleeping/snoring loudly she was hard to wake up she did briefly wake up - said hello - quickly went back to sleep no issues per staff Review of Systems Review of Systems: Unobtainable due to cognitive status and Unobtainable due to reduced consciousness Physical Exam Constitutional: + ill appearing, + altered mental status and + frail appearing; no acute distress ENMT: Mouth: + dry oral mucous membranes Respiratory: normal respiratory effort, lungs clear to auscultation (course bs b/l; snoring ) Cardiovascular: Rate/Rhythm: regular rate and regular rhythm Heart Sounds: normal S1 and normal S2; no murmur Vessels: posterior tibial pulses present and dorsalis pedis pulses present; no JVD Extremities: + edema (Trace b/l ) Gastrointestinal (Abdomen): normal bowel sounds, soft, nontender, no hepatosplenomegaly Inspection/Auscultation: + abdomen distended (Mild) and + visible herniation (Umbilical ) Psychiatric: Orientation: oriented to person Results & Data Results & Data ([facility]) Vital Signs (Past 12 Hours) Vital Signs Temp Pulse Resp BP BP Pulse Ox 11/13/20 22:32 37.3 C 72 20 158/63 H 91 11/13/20 15:04 36.8 C 70 18 144/73 H 96 blood cx's - /4 bottles + coag neg staph PG Care Time/CCT Total # of Minutes Spent Total Time Spent with Patient: Total time spent is greater than 50% in coordination of care (as documented) at patient's floor/unit and/or counseling patient: Coding Level of Care Code 18508 Subseq Hosp Care Lvl 1 Diagnoses Pressure ulcer of sacral region, stage 4 L89.154 Sacral osteomyelitis M46.28 Fecal impaction K56.41 Acute UTI (urinary tract infection) N39.0 Dementia F03.90 Failure to thrive Parkinson's disease G20 Elevated troponin R77.8 Diabetes E11.9 Hypothyroidism E03.9 Chronic narcotic use F11.90 Protein calorie malnutrition E46 Palliative care patient Z51.5
[2020-11-14] MEDS: ERTAPENEM SODIUM 1,000 MG in SODIUM CHLORIDE 0.9% 50 ML IV SCH (01:37)
[2020-11-14] MEDS ORDERED: DEXTROSE 50% 50 ML SYRINGE IV ONE (03:05)
[2020-11-14] MEDS: CARBIDOPA/LEVODOPA 25/100MG TAB PO SCH ×2 (08:22→12:45)
[2020-11-14] MEDS: GABAPENTIN 100 MG CAP PO SCH ×2 (08:23→12:45)
[2020-11-14] MEDS: SENNA 8.6 MG TAB PO SCH (08:23)
[2020-11-14] MEDS: CHECK fentaNYL PATCH PLACEMENT SCH (08:24)
[2020-11-14] MEDS: DAKIN'S SOLN 0.125% QUARTER STRENGTH 1000 ML BTL EXT SCH (08:25)
[2020-11-14] MEDS: MENTHOL-ZINC OXIDE 360 APPLN/120 GM TUBE EXT SCH (08:25)
[2020-11-14] MEDS: BENZTROPINE MESYLATE 0.5 MG TAB PO SCH (08:49)
[2020-11-14] MEDS: INSULIN ASPART 100 UNITS/ML 3 ML PEN SC SCH ×2 (09:04→12:43)
--- NOTE | 2020-11-14 13:16 | Discharge Summary ---
Date of Service date of admission - November 10, 2020 date of discharge - November 14, 2020 Admission HPI Per Admitting Provider The patient is a 75-year-old female with a past medical history including large sacral decubitus, diabetes mellitus, dementia, Parkinson's disease, lymphedema, venous insufficiency, hypothyroidism, bilateral lower extremity cellulitis, renal failure, urinary tract infection and generalized weakness. Patient was not able to contribute to her HPI or review of systems due to baseline mental status and lethargy. Principal Diagnosis 1. UTI 2. severe fecal impaction 3. sacral osteomyelitis 4. stage 4 sacral decubitus ulcer 5. transition to hospice/palliative care Discharge Exam Constitutional + ill appearing, + altered mental status and + frail appearing; no acute distress ENMT Mouth: + dry oral mucous membranes Respiratory normal respiratory effort, lungs clear to auscultation Cardiovascular Rate/Rhythm: regular rate and regular rhythm Heart Sounds: normal S1 and normal S2; no murmur Vessels: posterior tibial pulses present and dorsalis pedis pulses present; no JVD Extremities: + edema (Trace b/l ) Gastrointestinal (Abdomen) normal bowel sounds, soft, nontender, no hepatosplenomegaly Inspection/Auscultation: + abdomen distended (Mild) and + visible herniation (Umbilical ) Skin very large stage 4 sacral decubitus ulcer with visible bone/sacrum; no odor; no drainage. but decubitus tracks extensively in multiple directions. Neurologic Motor/Sensory: + tremor Psychiatric Orientation: oriented to person; + not alert, + not oriented to place and + not oriented to time Discharge Data Allergies Allergy/AdvReac Type Severity Reaction Status Date / Time SILVER DRESSINGS AdvReac Mild Burning Uncoded 11/10/20 21:08 sensation to wounds Consultations Palliative Care Wound Care Ordered Studies Chest X-Ray 11/10/20 19:17 XR chest 1V portable CLINICAL HISTORY: SEPSIS COMPARISON STUDY: 12/30/2013 FINDINGS: The heart is enlarged. There is slight interstitial thickening. There is no lobar consolidation. There are basilar opacities likely atelectatic[. There are no large pleural effusions IMPRESSION: 1. Cardiomegaly and mild nonspecific interstitial thickening. This could be related to atelectasis, mild pulmonary vascular congestion, or an infectious/inflammatory process. Clinical and radiographic follow-up recommended ACT 112: Negative or not required by law. Electronically signed by: Roberto Díaz M.D. 11/10/2020 7:48 PM Abdomen/Pelvis CT 11/10/20 20:[address] WITHOUT CONTRAST CT DOSE: 1413.25 mGy.cm HISTORY: Vomiting. GI bleed. Fever. TECHNIQUE: Multiaxial CT images of the abdomen and pelvis were performed without contrast. A dose lowering technique was utilized adhering to the principles of ALARA. COMPARISON STUDY: None. FINDINGS: Patchy densities within the bilateral lower lobes. No pneumoperitoneum. No pneumatosis. Small hiatus hernia. Moderate size fat- containing umbilical hernia. There is a Chen catheter within the decompressed bladder. Multiple calcified uterine fibroids are noted. Dominant fibroid measures approximately 8 cm. This results in the enlarged uterus. Moderate to large amount well-formed stool within the rectum with a 8 cm rectal stool ball. There is a large midline sacral decubitus ulcer which measures 7.5 cm. This abuts but does not invade into the posterior rectal wall. The distal sacrum/coccyx are absent. This could be due to prior resection or erosive change from osteomyelitis. The gas-filled ulcer abuts the residual distal sacrum. Therefore, by definition this would be consistent with sacral osteomyelitis. Colonic diverticulosis. No evidence for acute diverticulitis. Moderate well- formed stool within the colon. There is suboptimal evaluation for bowel pathology due to the lack of intravenous and oral contrast. However, there is no definite bowel wall thickening or obstruction. A 3 cm duodenal diverticulum is noted. No retroperitoneal lymphadenopathy. Calcified plaque within the normal caliber abdominal aorta. The unenhanced liver, spleen, pancreas, and adrenal glands unremarkable. No hydronephrosis. Punctate calcifications within the left renal sinus appears be vascular. Probable cholelithiasis. No gallbladder wall thickening. IMPRESSION: 1. A 7.5 cm sacral decubitus ulcer. The coccyx and distal sacrum are not identified and could be surgically resected or could be eroded from the sacral decubitus ulcer. The gas within the sacral decubitus ulcer abuts the residual distal sacrum. Therefore, by definition this be consistent with sacral osteomyelitis. 2. Moderate to large amount well-formed stool seen within the colon. 3. No definite bowel wall thickening or obstruction. 4. Cholelithiasis. 5. Additional findings as described above. ACT 112: Negative or not required by law. Electronically signed by: Bacilio Nesbitt M.D. 11/11/2020 9:02 AM Hospital Course (1) Palliative care patient: Palliative care consultation performed during the admission in light of severe failure to thrive, advanced dementia, advanced PD, bed-bound status, and large sacral decubitus ulcer with sacral osteomyelitis. Dr Olivia Thomas from palliative spoke with the pt's next of kin- her sister- and the pt's sister/family fully in support of hospice/comfort. POLST form completed. Was transitioned to formal hospice status upon discharge back to [facility]. All unnecessary medications were discontinued at discharge. (2) Pressure ulcer of sacral region, stage 4: severe; with significant erosion of coccyx/lower sacrum as seen on CT pelvis. present for 6-12 months or longer. slim to no chance of healing given bed-bound status, poor nutrition (albumin 1.9), stooling into the wound, etc. wound care team consulted and recs appreciated. given transition to hospice/comfort no plans for wound vac. recommendations from wound care team - 1. fill wound with kaltostat 2. cover with optifoam (3) Sacral osteomyelitis: given the severity of this in context of advanced dementia and PD - [facility] best option sister in support of hospice received IV abx while hospitalized but these were stopped at discharge (4) Fecal impaction: improving s/p multiple enemas over the admission cont senna 2 tabs BID for maintenance enemas prn PD, narcotics, bed-bound status make her constipation severe (5) Acute UTI (urinary tract infection): ESBL e.coli Rx with ertapenem stopped abx upon discharge back to [facility] (6) Dementia: severe, progressive, advanced likely 2nd parkinson's (7) Failure to thrive: severe 2nd dementia, PD, etc (8) Parkinson's disease: Continue carbidopa levodopa severe (9) Elevated troponin: likely myocardial demand ischemia in setting of UTI, etc (10) Diabetes: discontinue all therapies for DM as well as BSG checks upon discharge back to SNF given hospice status (11) Hypothyroidism: Continue levothyroxine; would keep this on board, if she can swallow it, upon hospital discharge as untreated hypothyroidism could make fatigue worse (12) Chronic narcotic use: for pain related to sacral decub, etc fentanyl patch q3d cont fentanyl patch along with morphine elixir prn pain/air hunger (13) Protein calorie malnutrition: ongoing Total Time Total Time Spent Total Time Spent (In Minutes): 35 Total Time Includes: Examination of the Patient, Discharge Planning, Medication Reconciliation and Communication With Other Providers Discharge Plan Discharge Items Patient Disposition: Transfer Detention Fac Reason For Visit: UTI Discharge Diagnosis: 1. fecal impaction 2. e coli UTI 3. severe stage 4 sacral decubitus ulcer 4. sacral osteomyelitis 5. severe, end-stage dementia 6. severe parkinson's disease 7. malnutrition 8. failure to thrive 9. transition to hospice Activity: As commented below Activity Comment: bedrest Non-emergency contact: Primary Care Provider Call non-emergency contact if: your symptoms worsen and your pain is not controlled Follow-up/Referrals: [facility] [Primary Care Provider] - Diet: Regular Diet Texture: Easy to Chew Addtl Attending Provider Instructions: Mrs Roberts is being transitioned to hospice at time of hospital discharge. POLST form has been completed. She is DNR/DNI. Her next of kin (sister, Veronica Roberts) is in support of hospice. Patient is a "DO NOT REHOSPITALIZE." Focus should be on comfort and treating symptoms. 1. can stop checking fingerstick blood sugars 2. stop blood draws 3. liberalize diet - allow regular diet as tolerated/desired 4. NC O2 2 liters for comfort 5. chen was exchanged on 11/14/20 at [facility] 6. limit vital signs to no more than once daily 7. please follow instructions from [facility] Wound Care Team regarding sacral decubitus ulcer Pending Studies at Discharge: No Stand-Alone Forms: My [facility] Skilled Items Patient informed of condition?: No DNR: Yes Discharge Level of Care: Skilled Communicable Disease: Yes Discharge Prognosis: Deteriorating Lines: None Urinary Catheter: Yes Medications and DC Order Prescriptions: New lorazepam [Ativan] 0.5 mg tablet 0.5 mg PO Q6H PRN (Reason: anxiety or agitation ) Qty: 10 RF: 0 Continued gabapentin 100 mg capsule 100 mg PO TID RF: 0 celecoxib 200 mg capsule 200 mg PO DAILY Qty: 30 RF: 0 bisacodyl [Dulcolax (bisacodyl)] 10 mg suppository 10 mg [place] DAILY PRN (Reason: Constipation) RF: 0 levothyroxine 200 mcg tablet 200 mcg PO QPM RF: 0 levothyroxine 75 mcg tablet 75 mcg PO QPM RF: 0 omeprazole 20 mg capsule,delayed release(DR/EC) 20 mg PO QPM RF: 0 carbidopa-levodopa 25-100 mg tablet 2 tab PO QID Qty: 720 RF: 3 Calmoseptine 0.44-20.6 % Ointment 1 applic TOPICAL DAILY RF: 0 Fleet Enema 19-7 gram/118 mL Enema 118 ml [place] DAILY PRN (Reason: Constipation) RF: 0 sodium chloride [Saline Nasal] 0.65 % Aerosol,Kodak 2 spray INTRANASAL Q6 PRN (Reason: Nasal Congestion) RF: 0 ondansetron HCl [Zofran] 4 mg Tablet 4 mg PO Q6H PRN (Reason: Nausea) RF: 0 magnesium hydroxide [Milk of Magnesia] 400 mg/5 mL Suspension 30 ml PO DAILY PRN (Reason: Constipation) RF: 0 acetaminophen 650 mg Tablet 650 mg PO Q12 MDD 3g PRN (Reason: Pain) RF: 0 benztropine 0.5 mg Tablet 0.5 mg PO BID RF: 0 Bengay Greaseless 15-10 % Cream 1 applic TOPICAL QS PRN (Reason: hand pain) RF: 0 atropine sulfate (PF) 1 % Drops See Rx Instructions .ROUTE .COMPLEX RF: 0 white petrolatum [Hydrophor] 42 % Ointment 1 applic TOPICAL QPM RF: 0 ketoconazole 2 % Shampoo 1 ea TOPICAL 2XWK RF: 0 Dakin's Solution 0.125 % Solution 1 applic TOPICAL DAILY RF: 0 fentanyl 50 mcg/hr patch 72 hour 50 mcg transdermal [id number] Qty: 5 RF: 0 Changed sennosides 8.6 mg tablet 17.2 mg PO BID Qty: 0 RF: 0 morphine concentrate 100 mg/5 mL (20 mg/mL) solution 10 mg PO Q1H PRN (Reason: pain or air hunger) Qty: 50 RF: 0 Discontinued Levemir FlexTouch U-100 Insuln 100 unit/mL (3 mL) insulin pen 25 units SQ HS RF: 0 cyanocobalamin (vitamin B-12) 1,000 mcg/mL solution 100 mcg IM .COMPLEX RF: 0 furosemide 20 mg tablet 20 mg PO DAILY RF: 0 fluticasone propionate 50 mcg/actuation spray,suspension 1 spray intranasal HS RF: 0 ascorbic acid (vitamin C) 500 mg tablet 500 mg PO BID RF: 0 glimepiride 2 mg tablet 2 mg PO Q12 RF: 0 protein supplement Liquid 1 ea PO UD RF: 0 Therems-M (old) Tablet 1 tab PO DAILY RF: 0 docusate sodium [Colace] 100 mg Capsule 100 mg PO BID RF: 0 metformin 1,000 mg Tablet Extended Release 24hr 1,000 mg PO DAILY RF: 0 Discharge Orders: Discharge Order (Routine); Ordered 11/14/20 Ordered By: Kwaku Jacobson Admission Data Admit Date/Time: 11/10/20 23:46 Attending Provider: Kwaku Jacobson Admit Provider: Willi Armenta Primary Care Provider: [facility] Other Providers: Willi Armenta ; Olivia Thomas ; [facility] Other Interventions: Discharge Summary Assessment (RN) Last Done: 11/14/20 13:26 Coding Level of Care Code D/C Day Management >30 mins Diagnoses Palliative care patient Z51.5 Pressure ulcer of sacral region, stage 4 L89.154 Sacral osteomyelitis M46.28 Fecal impaction K56.41 Acute UTI (urinary tract infection) N39.0 Dementia F03.90 Failure to thrive Parkinson's disease G20 Elevated troponin R77.8 Diabetes E11.9 Hypothyroidism E03.9 Chronic narcotic use F11.90 Protein calorie malnutrition E46
== END 2020-11-14 15:16 | disposition hospice, inpatient (51) | DRG 689 ==
LOC: ED 18:42 → 3W 23:46 → SUATTDRO 23:46 → 3W 11-11 00:17